=== PATIENT | female | born 1935 | race Caucasian/White ===

== ENCOUNTER 2018-05-29 10:10 | Observation (INO) | payer OTHER ==
--- OUTSIDE RECORDS SUMMARY | 2018-05-29 10:12 | XMS REPORT | Clinical Summary ---
:1935 Author Organization Formerly [facility] Address [address] [place] [address] Phone Care Team Providers Name Role Phone Unavailable Primary Care Provider Unavailable Allergies Active Allergy Reactions Severity Noted Date Comments Cephalexin Rash Low 06/11/2017 Levofloxacin Rash Low 06/11/2017 Penicillins Rash Low 06/11/2017 Current Medications Prescription Sig. Disp. Refills Start End Status Date Date celecoxib (CELEBREX) Take 200 mg by Active 200 MG capsule mouth 2 (two) times daily with breakfast and dinner. ALPRAZolam (XANAX) 0.25 Take 0.25 mg by Active MG tablet mouth every 6 (six) hours as needed for Anxiety. isosorbide dinitrate Take 30 mg by Active (ISORDIL) 20 MG tablet mouth 2 (two) times daily. pioglitazone (ACTOS) 15 Take 15 mg by Active MG tablet mouth daily. traMADol-acetaminophen Take 1-2 tablets Active (ULTRACET) 37.5-325 mg by mouth every 6 per tablet (six) hours as needed for Pain. pantoprazole (PROTONIX) Take 40 mg by Active 40 MG tablet mouth daily. simvastatin (ZOCOR) 20 Take 20 mg by Active MG tablet mouth nightly. ezetimibe (ZETIA) 10 mg Take 10 mg by Active tablet mouth daily. metoprolol (LOPRESSOR) Take 50 mg by Active 50 MG tablet mouth 2 (two) times daily. ondansetron (ZOFRAN) 4 Take 4 mg by Active MG tablet mouth every 8 (eight) hours as needed for Nausea. levothyroxine Take 125 mcg by Active (SYNTHROID, LEVOTHROID) mouth Every 125 MCG tablet morning on an empty stomach. fenofibrate Take 160 mg by Active (TRIGLIDE,LOFIBRA) 160 mouth daily. MG tablet clopidogrel (PLAVIX) 75 Take 75 mg by Active mg tablet mouth daily. PARoxetine (PAXIL) 20 Take 20 mg by Active MG tablet mouth every morning. aspirin 325 MG tablet Take 325 mg by Active mouth daily. docusate sodium Take by mouth 2 Active (COLACE) 50 MG capsule (two) times daily as needed for Constipation. niacin 500 MG tablet Take 500 mg by Active mouth daily with breakfast. lactobacillus Take 1 capsule by Active rhamnosus, GG, mouth daily. (CULTURELLE) 10 billion cell capsule insulin glargine Inject 40 Units Active (LANTUS) 100 unit/mL subcutaneously 2 injection (two) times daily Use as directed . furosemide (LASIX) 40 Take 0.5 tablets 0 06/14/20 Active MG tablet (20 mg total) by 17 mouth daily. insulin detemir Inject 40 Units 24 mL 1 06/14/20 Active (LEVEMIR) 100 unit/mL subcutaneously 2 17 018 injection (two) times daily. furosemide (LASIX) 40 Take 20 mg by Discontinued MG tablet mouth 2 (two) 017 times daily. hydroCHLOROthiazide Take 25 mg by Discontinued (HYDRODIURIL) 25 MG mouth daily. 017 tablet sulfamethoxazole-trimet Take 1 tablet by Discontinued hoprim (BACTRIM DS) mouth 2 (two) 017 800-160 mg per tablet times daily. irbesartan (AVAPRO) 300 Take 300 mg by Discontinued MG tablet mouth daily. 017 metroNIDAZOLE (FLAGYL) Take 1 tablet 30 tablet 0 06/14/20 500 MG tablet (500 mg total) by 17 017 mouth 3 (three) times daily for 10 days. sulfamethoxazole-trimet Take 1 tablet (80 20 tablet 0 06/14/20 hoprim (BACTRIM,SEPTRA) mg of 17 017 400-80 mg per tablet trimethoprim total) by mouth 2 (two) times daily for 10 days. Active Problems Problem Noted Date Diverticulitis 06/11/2017 Encounters Date Type Specialty Care Team Description 06/10/2017 - Hospital Encounter General Internal Rodrigo, Diverticulitis of 06/14/2017 Medicine Anatoly Mcfarlane, large intestine MD without perforation or abscess without bleeding after 05/28/2017 Family History Medical History Relation Name Comments No Known Problem Brother No Known Problem Daughter No Known Problem Father No Known Problem Maternal Aunt No Known Problem Maternal Grandfather No Known Problem Maternal Grandmother No Known Problem Maternal Uncle No Known Problem Mother No Known Problem Paternal Aunt No Known Problem Paternal Grandfather No Known Problem Paternal Grandmother No Known Problem Paternal Uncle No Known Problem Sister No Known Problem Son Relation Name Status Comments Brother Daughter Father Maternal Aunt Maternal Grandfather Maternal Grandmother Maternal Uncle Mother Paternal Aunt Paternal Grandfather Paternal Grandmother Paternal Uncle Sister Son Social History Tobacco Use Types Packs/Day Years Used Date Never Smoker Smokeless Tobacco: Never Used Tobacco Cessation: Counseling Given: Yes Alcohol Use Drinks/Week oz/Week Comments No Sex Assigned at Date Recorded Not on file Last Filed Vital Signs Vital Sign Reading Time Taken Blood Pressure 143/53 06/14/2017 1:23 PM CDT Pulse 68 06/14/2017 1:23 PM CDT Temperature 36.6 C (97.9 F) 06/14/2017 7:09 AM CDT Respiratory Rate 18 06/14/2017 1:23 PM CDT Oxygen Saturation 98% 06/14/2017 1:23 PM CDT Inhaled Oxygen Concentration - - Weight 83.5 kg (183 lb 15.9 oz) 06/11/2017 1:00 AM CDT Height 157.5 cm (5' 2") 06/11/2017 12:22 AM CDT Body Mass Index 33.65 06/11/2017 1:00 AM CDT Plan of Treatment Not on file Results RHYTHM STRIP - SCAN (06/15/2017 6:01 PM)POC-Glucose meter (06/14/2017 4:17 PM) Only the most recent of14 resultswithin the time period is included. Component Value Ref Range POC-Glucose Meter 315 (H)Comment: TESTED AT [facility] [address] [facility] 70 - 110 mg/dL [facility] [address] Specimen Performing Laboratory Blood [facility] [address] [address] CBC with platelet count + automated diff (06/14/2017 3:39 AM)Only the most recent of5 resultswithin the time period is included. Component Value Ref Range WBC 9.4 4.0 - 10.0 K/L RBC 3.84 (L) 4.00 - 5.00 M/L Hemoglobin 11.3 (L) 12.0 - 15.0 GM/DL Hematocrit 34.4 (L) 36.0 - 45.0 % MCV 89.6 82.0 - 99.0 fL MCH 29.3 27.0 - 33.0 pg MCHC 32.7 32.0 - 36.0 GM/DL RDW 14.4 12.0 - 15.0 % Platelets 279 150 - 430 K/CU MM MPV 8.1 6.5 - 10.5 fL nRBC 0 0 - 0 /100 WBC % Neutros 57 % % Lymphs 30 % % Monos 6 % % Eos 7 % % Baso 1 % # Neutros 5.40 1.80 - 8.00 K/L # Lymphs 2.80 1.48 - 4.50 K/L # Monos 0.50 0.00 - 1.30 K/L # Eos 0.60 (H) 0.00 - 0.50 K/L # Baso 0.10 0.00 - 0.20 K/L Specimen Performing Laboratory Blood - [facility] [address] [place] [address] CBC with platelet count + automated diff (06/14/2017 3:39 AM)Only the most recent of5 resultswithin the time period is included. Specimen Performing Laboratory Blood Narrative The following orders were created for panel order CBC with platelet count + automated diff. Procedure Abnormality Status --------- ------ CBC with platelet count ...[[id number]]AbnormalFinal result Please view results for these tests on the individual orders. Comprehensive metabolic panel (06/14/2017 3:39 AM)Only the most recent of4 resultswithin the time period is included. Component Value Ref Range Protein, Total 6.1 6.0 - 8.5 gm/dL Albumin 3.4 (L) 3.5 - 5.0 g/dL Alkaline Phosphatase 55 30 - 115 U/L Total Bilirubin 0.3 0.1 - 1.3 mg/dL Sodium 140 135 - 148 meq/L Potassium 4.4 3.5 - 5.5 meq/L Chloride 107 (H) 98 - 106 meq/L CO2 23 20 - 31 meq/L BUN 30 (H) 10 - 26 mg/dL Creatinine 2.27 (H) 0.50 - 1.20 mg/dL Glucose 122 (H) 70 - 110 mg/dL Calcium 9.3 8.5 - 10.5 mg/dL AST 19 5 - 40 U/L ALT 12 6 - 50 U/L EGFR Comment: INSUFFICIENT CLINICAL DATA TO mL/min/1.73 sq m CALCULATE ESTIMATED GFR. Specimen Performing Laboratory Blood - [place], [facility] [address] [place] [address] Basic Metabolic Panel (06/12/2017 11:21 AM)Only the most recent of2 resultswithin the time period is included. Component Value Ref Range Sodium 134 (L) 135 - 148 meq/L Potassium 4.7 3.5 - 5.5 meq/L Chloride 98 98 - 106 meq/L CO2 23 20 - 31 meq/L BUN 35 (H) 10 - 26 mg/dL Creatinine 2.34 (H) 0.50 - 1.20 mg/dL Glucose 295 (H) 70 - 110 mg/dL Calcium 10.0 8.5 - 10.5 mg/dL EGFR Comment: INSUFFICIENT CLINICAL DATA TO CALCULATE mL/min/1.73 sq m ESTIMATED GFR. Specimen Performing Laboratory Blood - [place], [facility] [address] [place] [address] Sedimentation rate (06/11/2017 8:03 AM) Component Value Ref Range Sed Rate 55 (H) 0 - 40 mm/HR Specimen Performing Laboratory Blood - [place], [facility] [address] [place] [address] after 05/28/2017
--- OUTSIDE RECORDS SUMMARY | 2018-05-29 10:13 | XMS REPORT ---
:1935 [facility] Address [address] [place], [place] [address]linda Johnston [address] [place] [id number] Care Team Providers Name Role Phone MINA ALBERTS Unavailable Unavailable Problems This patient has no known problems. Allergies, Adverse Reactions, Alerts This patient has no known allergies or adverse reactions. Medications This patient has no known medications. Results Test Description Test Time Test Comments Text Results Atomic Results Result Comments POCT-GLUCOSE METER 2017-06-14 16:21:00 Test Item Value Reference Range Comments POC-GLUCOSE METER (BEAKER) (test 315 mg/dL 70-110 TESTED AT [facility] [id number] [place] [address] WAY wbns=[id number]) [facility] [address] POCT-GLUCOSE [id number] 11:57:00 Test Item Value Reference Range Comments POC-GLUCOSE METER (BEAKER) 224 mg/dL 70-110 TESTED AT [facility] [address] [facility] (test jbop=5411) [facility] [address] POCT-GLUCOSE [id number] 06:03:00 Test Item Value Reference Range Comments POC-GLUCOSE METER (BEAKER) 118 mg/dL 70-110 TESTED AT [facility] [address] [facility] (test jeyi=7361) [facility] [address] COMPREHENSIVE METABOLIC [id number] 04:28:00 Test Item Value Reference Range Comments TOTAL PROTEIN (BEAKER) 6.1 gm/dL 6.0-8.5 (test uuru=142) ALBUMIN (BEAKER) (test 3.4 g/dL 3.5-5.0 hbaz=9723) ALKALINE PHOSPHATASE 55 U/L 30-115 (BEAKER) (test xtof=953) BILIRUBIN TOTAL (BEAKER) 0.3 mg/dL 0.1-1.3 (test thxb=448) SODIUM (BEAKER) (test 140 meq/L 135-148 zdow=555) POTASSIUM (BEAKER) (test 4.4 meq/L 3.5-5.5 gewo=129) CHLORIDE (BEAKER) (test 107 meq/L 98-106 ksce=645) CO2 (BEAKER) (test 23 meq/L 20-31 oary=704) BLOOD UREA NITROGEN 30 mg/dL 10-26 (BEAKER) (test olgu=240) CREATININE (BEAKER) (test 2.27 mg/dL 0.50-1.20 fzug=085) GLUCOSE RANDOM (BEAKER) 122 mg/dL 70-110 (test vjqz=382) CALCIUM (BEAKER) (test 9.3 mg/dL 8.5-10.5 oaxh=018) AST (SGOT) (BEAKER) (test 19 U/L 5-40 bwvw=429) ALT (SGPT) (BEAKER) (test 12 U/L 6-50 xeun=665) EGFR (BEAKER) (test mL/min/1.73 sq m INSUFFICIENT CLINICAL DATA hwka=1257) TO CALCULATE ESTIMATED GFR. CBC W/PLT COUNT & AUTO [id number] 03:44:00 Test Item Value Reference Range Comments WHITE BLOOD CELL COUNT (BEAKER) (test kzxc=354) 9.4 K/ L 4.0-10.0 RED BLOOD CELL COUNT (BEAKER) (test olid=732) 3.84 M/ L 4.00-5.00 HEMOGLOBIN (BEAKER) (test tekc=269) 11.3 GM/DL 12.0-15.0 HEMATOCRIT (BEAKER) (test ujtv=425) 34.4 % 36.0-45.0 MEAN CORPUSCULAR VOLUME (BEAKER) (test fojg=016) 89.6 fL 82.0-99.0 MEAN CORPUSCULAR HEMOGLOBIN (BEAKER) (test 29.3 pg 27.0-33.0 egqu=065) MEAN CORPUSCULAR HEMOGLOBIN CONC (BEAKER) (test 32.7 GM/DL 32.0-36.0 hdsv=653) RED CELL DISTRIBUTION WIDTH (BEAKER) (test 14.4 % 12.0-15.0 zqrb=218) PLATELET COUNT (BEAKER) (test kphh=531) 279 K/CU MM 150-430 MEAN PLATELET VOLUME (BEAKER) (test bwbd=210) 8.1 fL 6.5-10.5 NUCLEATED RED BLOOD CELLS (BEAKER) (test 0 /100 WBC 0-0 xllu=860) NEUTROPHILS RELATIVE PERCENT (BEAKER) (test 57 % zwix=125) LYMPHOCYTES RELATIVE PERCENT (BEAKER) (test 30 % ohyr=445) MONOCYTES RELATIVE PERCENT (BEAKER) (test 6 % flrs=363) EOSINOPHILS RELATIVE PERCENT (BEAKER) (test 7 % kzdd=536) BASOPHILS RELATIVE PERCENT (BEAKER) (test 1 % hqql=505) NEUTROPHILS ABSOLUTE COUNT (BEAKER) (test 5.40 K/ L 1.80-8.00 omjb=239) LYMPHOCYTES ABSOLUTE COUNT (BEAKER) (test 2.80 K/ L 1.48-4.50 venx=803) MONOCYTES ABSOLUTE COUNT (BEAKER) (test 0.50 K/ L 0.00-1.30 crie=707) EOSINOPHILS ABSOLUTE COUNT (BEAKER) (test 0.60 K/ L 0.00-0.50 mmxn=688) BASOPHILS ABSOLUTE COUNT (BEAKER) (test 0.10 K/ L 0.00-0.20 vfjf=322) POCT-GLUCOSE [id number] 20:46:00 Test Item Value Reference Range Comments POC-GLUCOSE METER (BEAKER) 262 mg/dL 70-110 TESTED AT [facility] [address] [facility] (test tfai=4816) [facility] [address] POCT-GLUCOSE [id number] 18:01:00 Test Item Value Reference Range Comments POC-GLUCOSE METER (BEAKER) 305 mg/dL 70-110 Notified NICOLASA RAYGOZA/TESTED AT [facility] (test qvjm=9237) [address] [facility] [address] [facility] [address] POCT-GLUCOSE [id number] 11:41:00 Test Item Value Reference Range Comments POC-GLUCOSE METER (BEAKER) 331 mg/dL 70-110 TESTED AT [facility] [address] [facility] (test ubgp=8219) [facility] [address] COMPREHENSIVE METABOLIC [id number] 05:16:00 Test Item Value Reference Range Comments TOTAL PROTEIN (BEAKER) 6.3 gm/dL 6.0-8.5 (test syeb=280) ALBUMIN (BEAKER) (test 3.3 g/dL 3.5-5.0 cjrd=6010) ALKALINE PHOSPHATASE 67 U/L 30-115 (BEAKER) (test emui=467) BILIRUBIN TOTAL (BEAKER) 0.3 mg/dL 0.1-1.3 (test dggl=246) SODIUM (BEAKER) (test 137 meq/L 135-148 iqlm=357) POTASSIUM (BEAKER) (test 4.2 meq/L 3.5-5.5 vycr=369) CHLORIDE (BEAKER) (test 105 meq/L 98-106 naad=166) CO2 (BEAKER) (test 22 meq/L 20-31 edvn=898) BLOOD UREA NITROGEN 36 mg/dL 10-26 (BEAKER) (test xotl=441) CREATININE (BEAKER) (test 2.26 mg/dL 0.50-1.20 wenh=517) GLUCOSE RANDOM (BEAKER) 241 mg/dL 70-110 (test xlhq=375) CALCIUM (BEAKER) (test 9.5 mg/dL 8.5-10.5 jepo=839) AST (SGOT) (BEAKER) (test 18 U/L 5-40 zsln=244) ALT (SGPT) (BEAKER) (test 11 U/L 6-50 ukwq=367) EGFR (BEAKER) (test mL/min/1.73 sq m INSUFFICIENT CLINICAL DATA wgga=6796) TO CALCULATE ESTIMATED GFR. CBC W/PLT COUNT & AUTO [id number] 04:49:00 Test Item Value Reference Range Comments WHITE BLOOD CELL COUNT (BEAKER) (test fhqo=794) 9.3 K/ L 4.0-10.0 RED BLOOD CELL COUNT (BEAKER) (test kcoq=129) 3.89 M/ L 4.00-5.00 HEMOGLOBIN (BEAKER) (test kkrx=603) 11.5 GM/DL 12.0-15.0 HEMATOCRIT (BEAKER) (test anvg=065) 34.9 % 36.0-45.0 MEAN CORPUSCULAR VOLUME (BEAKER) (test vltc=746) 89.7 fL 82.0-99.0 MEAN CORPUSCULAR HEMOGLOBIN (BEAKER) (test 29.4 pg 27.0-33.0 xvcj=936) MEAN CORPUSCULAR HEMOGLOBIN CONC (BEAKER) (test 32.8 GM/DL 32.0-36.0 mjor=049) RED CELL DISTRIBUTION WIDTH (BEAKER) (test 14.2 % 12.0-15.0 wodq=041) PLATELET COUNT (BEAKER) (test puzs=983) 268 K/CU MM 150-430 MEAN PLATELET VOLUME (BEAKER) (test bpzy=011) 8.7 fL 6.5-10.5 NUCLEATED RED BLOOD CELLS (BEAKER) (test 0 /100 WBC 0-0 jwgm=251) NEUTROPHILS RELATIVE PERCENT (BEAKER) (test 59 % knrl=052) LYMPHOCYTES RELATIVE PERCENT (BEAKER) (test 30 % ebpa=215) MONOCYTES RELATIVE PERCENT (BEAKER) (test 5 % jnvk=084) EOSINOPHILS RELATIVE PERCENT (BEAKER) (test 7 % ljmc=069) BASOPHILS RELATIVE PERCENT (BEAKER) (test 0 % zufj=102) NEUTROPHILS ABSOLUTE COUNT (BEAKER) (test 5.50 K/ L 1.80-8.00 qfqf=738) LYMPHOCYTES ABSOLUTE COUNT (BEAKER) (test 2.70 K/ L 1.48-4.50 rdel=021) MONOCYTES ABSOLUTE COUNT (BEAKER) (test 0.50 K/ L 0.00-1.30 bjsk=194) EOSINOPHILS ABSOLUTE COUNT (BEAKER) (test 0.60 K/ L 0.00-0.50 vupg=752) BASOPHILS ABSOLUTE COUNT (BEAKER) (test 0.00 K/ L 0.00-0.20 jvye=697) POCT-GLUCOSE [id number] 20:59:00 Test Item Value Reference Range Comments POC-GLUCOSE METER (BEAKER) 363 mg/dL 70-110 Notified NICOLASA RAYGOZA/TESTED AT [facility] (test lhab=2942) [address] [facility] [address] POCT-GLUCOSE [id number] 17:17:00 Test Item Value Reference Range Comments POC-GLUCOSE METER (BEAKER) 314 mg/dL 70-110 TESTED AT [facility] [address] [facility] (test yhqt=7515) [facility] [address] BASIC METABOLIC [id number] 12:14:00 Test Item Value Reference Range Comments SODIUM (BEAKER) (test 134 meq/L 135-148 vvpn=871) POTASSIUM (BEAKER) (test 4.7 meq/L 3.5-5.5 ctuv=924) CHLORIDE (BEAKER) (test 98 meq/L 98-106 hzwq=768) CO2 (BEAKER) (test 23 meq/L 20-31 iivf=786) BLOOD UREA NITROGEN 35 mg/dL 10-26 (BEAKER) (test bjbi=888) CREATININE (BEAKER) (test 2.34 mg/dL 0.50-1.20 stfr=447) GLUCOSE RANDOM (BEAKER) 295 mg/dL 70-110 (test msuw=556) CALCIUM (BEAKER) (test 10.0 mg/dL 8.5-10.5 bzgk=087) EGFR (BEAKER) (test mL/min/1.73 sq m INSUFFICIENT CLINICAL DATA irkr=9076) TO CALCULATE ESTIMATED GFR. CBC W/PLT COUNT & AUTO [id number] 11:37:00 Test Item Value Reference Range Comments WHITE BLOOD CELL COUNT (BEAKER) (test fdjj=655) 10.1 K/ L 4.0-10.0 RED BLOOD CELL COUNT (BEAKER) (test mouy=533) 4.42 M/ L 4.00-5.00 HEMOGLOBIN (BEAKER) (test jitx=809) 13.0 GM/DL 12.0-15.0 HEMATOCRIT (BEAKER) (test aovf=327) 39.6 % 36.0-45.0 MEAN CORPUSCULAR VOLUME (BEAKER) (test egqu=029) 89.5 fL 82.0-99.0 MEAN CORPUSCULAR HEMOGLOBIN (BEAKER) (test 29.4 pg 27.0-33.0 cbtn=763) MEAN CORPUSCULAR HEMOGLOBIN CONC (BEAKER) (test 32.8 GM/DL 32.0-36.0 xnbc=255) RED CELL DISTRIBUTION WIDTH (BEAKER) (test 14.3 % 12.0-15.0 wjks=791) PLATELET COUNT (BEAKER) (test nzla=845) 326 K/CU MM 150-430 MEAN PLATELET VOLUME (BEAKER) (test agij=369) 8.7 fL 6.5-10.5 NUCLEATED RED BLOOD CELLS (BEAKER) (test 0 /100 WBC 0-0 nwdt=832) NEUTROPHILS RELATIVE PERCENT (BEAKER) (test 60 % pjge=197) LYMPHOCYTES RELATIVE PERCENT (BEAKER) (test 27 % wffx=143) MONOCYTES RELATIVE PERCENT (BEAKER) (test 7 % onfo=920) EOSINOPHILS RELATIVE PERCENT (BEAKER) (test 6 % nfri=908) BASOPHILS RELATIVE PERCENT (BEAKER) (test 0 % xmcq=907) NEUTROPHILS ABSOLUTE COUNT (BEAKER) (test 6.10 K/ L 1.80-8.00 okmu=860) LYMPHOCYTES ABSOLUTE COUNT (BEAKER) (test 2.70 K/ L 1.48-4.50 hcez=862) MONOCYTES ABSOLUTE COUNT (BEAKER) (test 0.70 K/ L 0.00-1.30 cjli=881) EOSINOPHILS ABSOLUTE COUNT (BEAKER) (test 0.60 K/ L 0.00-0.50 tayc=324) BASOPHILS ABSOLUTE COUNT (BEAKER) (test 0.00 K/ L 0.00-0.20 kwwt=688) POCT-GLUCOSE [id number] 11:32:00 Test Item Value Reference Range Comments POC-GLUCOSE METER (BEAKER) 293 mg/dL 70-110 TESTED AT [facility] [id number] [place] [address] (test wccq=8551) [facility] [address] POCT-GLUCOSE [id number] 06:01:00 Test Item Value Reference Range Comments POC-GLUCOSE METER (BEAKER) 294 mg/dL 70-110 TESTED AT [facility] [id number] [place] [address] (test aqmg=2491) [facility] [address] BASIC METABOLIC [id number] 05:34:00 Test Item Value Reference Range Comments SODIUM (BEAKER) (test 136 meq/L 135-148 lugz=564) POTASSIUM (BEAKER) (test 4.1 meq/L 3.5-5.5 inmd=774) CHLORIDE (BEAKER) (test 101 meq/L 98-106 jqpk=857) CO2 (BEAKER) (test 22 meq/L 20-31 pfgl=700) BLOOD UREA NITROGEN 34 mg/dL 10-26 (BEAKER) (test uqzj=796) CREATININE (BEAKER) (test 2.42 mg/dL 0.50-1.20 zpcc=427) GLUCOSE RANDOM (BEAKER) 273 mg/dL 70-110 (test arng=987) CALCIUM (BEAKER) (test 9.7 mg/dL 8.5-10.5 mdvq=576) EGFR (BEAKER) (test mL/min/1.73 sq m INSUFFICIENT CLINICAL DATA hukr=9870) TO CALCULATE ESTIMATED GFR. COMPREHENSIVE METABOLIC [id number] 05:34:00 Test Item Value Reference Range Comments TOTAL PROTEIN (BEAKER) 6.5 gm/dL 6.0-8.5 (test iqds=174) ALBUMIN (BEAKER) (test 3.6 g/dL 3.5-5.0 oudf=9079) ALKALINE PHOSPHATASE 59 U/L 30-115 (BEAKER) (test cxin=498) BILIRUBIN TOTAL (BEAKER) 0.3 mg/dL 0.1-1.3 (test mvpd=785) SODIUM (BEAKER) (test 136 meq/L 135-148 xedo=889) POTASSIUM (BEAKER) (test 4.1 meq/L 3.5-5.5 xtlj=037) CHLORIDE (BEAKER) (test 101 meq/L 98-106 kvzl=020) CO2 (BEAKER) (test 22 meq/L 20-31 eihf=912) BLOOD UREA NITROGEN 34 mg/dL 10-26 (BEAKER) (test aqid=552) CREATININE (BEAKER) (test 2.42 mg/dL 0.50-1.20 pqix=977) GLUCOSE RANDOM (BEAKER) 273 mg/dL 70-110 (test fhrl=808) CALCIUM (BEAKER) (test 9.7 mg/dL 8.5-10.5 udlw=171) AST (SGOT) (BEAKER) (test 13 U/L 5-40 ihos=239) ALT (SGPT) (BEAKER) (test 10 U/L 6-50 zsgj=353) EGFR (BEAKER) (test mL/min/1.73 sq m INSUFFICIENT CLINICAL DATA nnqy=8898) TO CALCULATE ESTIMATED GFR. CBC W/PLT COUNT & AUTO [id number] 05:06:00 Test Item Value Reference Range Comments WHITE BLOOD CELL COUNT (BEAKER) (test shsi=136) 9.2 K/ L 4.0-10.0 RED BLOOD CELL COUNT (BEAKER) (test yccs=651) 4.08 M/ L 4.00-5.00 HEMOGLOBIN (BEAKER) (test sped=516) 12.1 GM/DL 12.0-15.0 HEMATOCRIT (BEAKER) (test sflj=561) 36.4 % 36.0-45.0 MEAN CORPUSCULAR VOLUME (BEAKER) (test leey=721) 89.1 fL 82.0-99.0 MEAN CORPUSCULAR HEMOGLOBIN (BEAKER) (test 29.6 pg 27.0-33.0 rubt=595) MEAN CORPUSCULAR HEMOGLOBIN CONC (BEAKER) (test 33.2 GM/DL 32.0-36.0 gfov=941) RED CELL DISTRIBUTION WIDTH (BEAKER) (test 14.2 % 12.0-15.0 rgpv=052) PLATELET COUNT (BEAKER) (test bpsx=624) 278 K/CU MM 150-430 MEAN PLATELET VOLUME (BEAKER) (test qrvd=341) 8.5 fL 6.5-10.5 NUCLEATED RED BLOOD CELLS (BEAKER) (test 0 /100 WBC 0-0 wuab=149) NEUTROPHILS RELATIVE PERCENT (BEAKER) (test 57 % aiga=606) LYMPHOCYTES RELATIVE PERCENT (BEAKER) (test 30 % zaql=981) MONOCYTES RELATIVE PERCENT (BEAKER) (test 6 % lgnp=220) EOSINOPHILS RELATIVE PERCENT (BEAKER) (test 6 % wqbl=738) BASOPHILS RELATIVE PERCENT (BEAKER) (test 1 % nmhf=006) NEUTROPHILS ABSOLUTE COUNT (BEAKER) (test 5.20 K/ L 1.80-8.00 kdcr=893) LYMPHOCYTES ABSOLUTE COUNT (BEAKER) (test 2.80 K/ L 1.48-4.50 yprv=558) MONOCYTES ABSOLUTE COUNT (BEAKER) (test 0.60 K/ L 0.00-1.30 ymnj=612) EOSINOPHILS ABSOLUTE COUNT (BEAKER) (test 0.60 K/ L 0.00-0.50 bhey=874) BASOPHILS ABSOLUTE COUNT (BEAKER) (test 0.10 K/ L 0.00-0.20 zcfc=299) POCT-GLUCOSE [id number] 21:27:00 Test Item Value Reference Range Comments POC-GLUCOSE METER (BEAKER) 366 mg/dL 70-110 TESTED AT [facility] [id number] [place] [address] (test odbb=0146) WAY [facility] [address] POCT-GLUCOSE [id number] 20:16:00 Test Item Value Reference Range Comments POC-GLUCOSE METER (BEAKER) 329 mg/dL 70-110 TESTED AT [facility] [id number] [place] [address] (test zkkl=6538) WAY [facility] [address] POCT-GLUCOSE [id number] 11:50:00 Test Item Value Reference Range Comments POC-GLUCOSE METER (BEAKER) 360 mg/dL 70-110 Notified NICOLASA RAYGOZA/TESTED AT [facility] (test xugz=3776) [address] [facility] [address] [facility] [address] SEDIMENTATION [id number] 09:08:00 Test Item Value Reference Range Comments SEDIMENTATION RATE, ERYTHROCYTE (BEAKER) (test 55 mm/HR 0-40 jquk=887) COMPREHENSIVE METABOLIC [id number] 06:16:00 Test Item Value Reference Range Comments TOTAL PROTEIN (BEAKER) 7.6 gm/dL 6.0-8.5 (test mlsr=128) ALBUMIN (BEAKER) (test 4.0 g/dL 3.5-5.0 yjju=0484) ALKALINE PHOSPHATASE 70 U/L 30-115 (BEAKER) (test ywbz=625) BILIRUBIN TOTAL (BEAKER) 0.4 mg/dL 0.1-1.3 (test wlnh=855) SODIUM (BEAKER) (test 132 meq/L 135-148 ugqg=390) POTASSIUM (BEAKER) (test 4.1 meq/L 3.5-5.5 wxux=458) CHLORIDE (BEAKER) (test 99 meq/L 98-106 spbz=652) CO2 (BEAKER) (test 21 meq/L 20-31 cdlp=888) BLOOD UREA NITROGEN 28 mg/dL 10-26 (BEAKER) (test tapw=973) CREATININE (BEAKER) (test 1.92 mg/dL 0.50-1.20 ivtm=261) GLUCOSE RANDOM (BEAKER) 380 mg/dL 70-110 (test acbp=577) CALCIUM (BEAKER) (test 10.4 mg/dL 8.5-10.5 cbhu=115) AST (SGOT) (BEAKER) (test 15 U/L 5-40 vufx=641) ALT (SGPT) (BEAKER) (test 10 U/L 6-50 sxoq=694) EGFR (BEAKER) (test mL/min/1.73 sq m INSUFFICIENT CLINICAL DATA ltam=9868) TO CALCULATE ESTIMATED GFR. POCT-GLUCOSE [id number] 06:15:00 Test Item Value Reference Range Comments POC-GLUCOSE METER (BEAKER) 357 mg/dL 70-110 TESTED AT [facility] [address] [facility] (test vhsv=9995) WAY [facility] [address] CBC W/PLT COUNT & AUTO [id number] 05:42:00 Test Item Value Reference Range Comments WHITE BLOOD CELL COUNT (BEAKER) (test uuwu=513) 10.7 K/ L 4.0-10.0 RED BLOOD CELL COUNT (BEAKER) (test tust=107) 4.57 M/ L 4.00-5.00 HEMOGLOBIN (BEAKER) (test xjvn=915) 13.5 GM/DL 12.0-15.0 HEMATOCRIT (BEAKER) (test nzfo=171) 41.0 % 36.0-45.0 MEAN CORPUSCULAR VOLUME (BEAKER) (test uiop=574) 89.8 fL 82.0-99.0 MEAN CORPUSCULAR HEMOGLOBIN (BEAKER) (test 29.6 pg 27.0-33.0 udwy=003) MEAN CORPUSCULAR HEMOGLOBIN CONC (BEAKER) (test 32.9 GM/DL 32.0-36.0 gzkm=869) RED CELL DISTRIBUTION WIDTH (BEAKER) (test 14.7 % 12.0-15.0 pwea=879) PLATELET COUNT (BEAKER) (test ycgh=012) 270 K/CU MM 150-430 MEAN PLATELET VOLUME (BEAKER) (test tcou=033) 8.4 fL 6.5-10.5 NUCLEATED RED BLOOD CELLS (BEAKER) (test 0 /100 WBC 0-0 bupl=246) NEUTROPHILS RELATIVE PERCENT (BEAKER) (test 69 % tkac=636) LYMPHOCYTES RELATIVE PERCENT (BEAKER) (test 22 % mvbi=058) MONOCYTES RELATIVE PERCENT (BEAKER) (test 5 % cwhr=012) EOSINOPHILS RELATIVE PERCENT (BEAKER) (test 3 % vjsg=483) BASOPHILS RELATIVE PERCENT (BEAKER) (test 1 % biwe=123) NEUTROPHILS ABSOLUTE COUNT (BEAKER) (test 7.40 K/ L 1.80-8.00 jufq=834) LYMPHOCYTES ABSOLUTE COUNT (BEAKER) (test 2.40 K/ L 1.48-4.50 eghi=468) MONOCYTES ABSOLUTE COUNT (BEAKER) (test 0.60 K/ L 0.00-1.30 dpvi=188) EOSINOPHILS ABSOLUTE COUNT (BEAKER) (test 0.30 K/ L 0.00-0.50 shcb=099) BASOPHILS ABSOLUTE COUNT (BEAKER) (test 0.00 K/ L 0.00-0.20 keft=692)
[2018-05-29 10:33] LABS: Absolute Lymphocytes (CBC) 2.8 K/uL (0.7-4.9); Absolute Monocytes 0.6 K/uL (0.1-1.3); Absolute Neutrophil 9.5 K/uL (1.8-8.0); Basophils % 1.1 % (0-1.3); Eosinophils % 3.3 % (0-4.4); Hematocrit 41.6 % (36.0-45.0); Lymphocytes % 20.6 % (15.3-44.8); MCV 87.2 fL (80-100); MPV 9.1 fL (7.6-11.3); Monocytes % 4.6 % (3.3-12.3); RBC Red Blood Cell Count 4.76 M/uL (3.86-4.86)
[2018-05-29] MEDS ORDERED: NA CHLORIDE 0.9% 1,000 ML ONE (10:34)
[2018-05-29 10:39] LABS: Protime INR 0.99
--- NOTE | 2018-05-29 10:57 | RAD REPORT ---
EXAM DESCRIPTION: CT - [id number] - 05/29/2018 10:37 am CLINICAL HISTORY: Fall, syncope, head and neck injury COMPARISON: CT head and cervical July 2017 TECHNIQUE: Axial 5 mm thick images of the head were obtained. Axial 2 mm thick images of the cervic al spine were obtained with sagittal and coronal reconstruction images generated and reviewed. All CT scans are performed using dose optimization technique as appropriate and may include automated exposure control or mA/KV adjustment according to patient size. FINDINGS: No intracranial hemorrhage, mass, edema or acute intracranial finding. No suspicion for ac lainey infarction. Patient does have prominent atrophy and chronic ischemic change that matches comparis on. Ventricular size is in proportion to the volume loss. Physiologic and arterial calcifications are present. Mastoid air cells and paranasal sinuses are clear. No globe or orbit abnormality seen. Cervical body height and alignment are normal. Mild disc space narrowing is present from C3 to C7. Th is is most pronounced at C6-7. Endplate spurring and uncovertebral joint changes are present. There i s mild left foraminal encroachment at C5-6. Central spinal stenosis is not suspected. No fracture or acute bony abnormality. Central canal detail is inherently limited. Cervical spine is not clearly dif ferent from the comparison. No paraspinal mass or hematoma. IMPRESSION: Prominent atrophy and chronic ischemic change matching the comparison. No acute intracra nial finding. Cervical spine degenerative change matching the comparison. No acute finding. Negative CT cervical spine examination for acute or significant finding.
[2018-05-29 11:02] LABS: Urine Blood 1+ (NEG); Urine Glucose NEGATIVE (NEG); Urine Protein NEGATIVE (NEG); Urine Specific Gravity 1.015 (1.005-1.030); Urine pH 7.5 (5.0-7.0)
[2018-05-29 11:06] LABS: ALT/SGPT 19 U/L (12-78); AST/SGOT 19 U/L (15-37); Albumin 3.8 g/dL (3.4-5.0); Alkaline Phosphatase 67 U/L (45-117); BUN Blood Urea Nitrogen 52 mg/dL (7-18); Bicarbonate 26 mmol/L (21-32); Bilirubin Direct 0.2 mg/dL (0-0.2); Bilirubin Total 0.4 mg/dL (0.2-1.0); CKMB Creatine Kinase MB < 1.0 ng/mL (0.3-3.6); Creatine Phosphokinase 57 U/L (26-192); Glucose Level 374 mg/dL (74-106); Lipase 236 U/L (73-393); Magnesium 2.1 mg/dL (1.8-2.4); NT PRO-BNP 1321 pg/mL (<450); Potassium 4.7 mmol/L (3.5-5.1); Protein, Total 7.7 g/dL (6.4-8.2); Sodium Level 134 mmol/L (136-145)
[2018-05-29 11:19] LABS: Thyroid Stimulating Hormone 5.93 uIU/mL (0.36-3.74)
--- NOTE | 2018-05-29 11:20 | RAD REPORT ---
EXAM DESCRIPTION: RAD - Chest Single View - 05/29/2018 10:47 am CLINICAL HISTORY: Fall, chest pain COMPARISON: March 2016 TECHNIQUE: AP portable chest image was obtained 1031 hours . FINDINGS: No acute failure, infiltrate or suspicious mass. A few small granulomas are present. Trach ea is midline. Heart and vasculature are normal. No measurable pleural effusion and no pneumothorax. No acute bone finding. Degenerative changes are present. There is a right shoulder prosthesis in plac e. No acute aortic findings suspected. IMPRESSION: No acute cardiopulmonary process. Above detailed findings are stable from 2016.
--- NOTE | 2018-05-29 12:57 | EDPHYS ---
Physician Documentation [facility] Name: Leslie Cedeño Age: 82 yrs Sex: Female : 1935 Arrival Date: 05/29/2018 Time: 10:01 Bed 2 Private MD: ED Physician Davidson Cisneros HPI: 05/29 10:26 This 82 yrs old Female presents to ER via EMS with complaints of Near rj Syncope, Fall Injury. 10:26 The patient has experienced near-syncope. Onset: The symptoms/episode began/occurred rj just prior to arrival, this morning. Duration: This was a single episode, that lasted 30 second(s). Context: occurred at home. Associated injury: Head/face:. Associated signs and symptoms: Pertinent positives: dizziness, weakness. Current symptoms: Currently, the patient is not experiencing any symptoms. The patient has not experienced similar symptoms in the past. Historical: - Allergies: 10: Keflex; aa5 10: Levaquin; aa5 10:01 PENICILLINS; aa5 10:01 Trulicity; aa5 - Home Meds: 10:01 clopidogrel Oral [Active]; fenofibrate Oral [Active]; hydrochlorothiazide 12.5 mg Oral aa5 cap 1 cap once daily [Active]; Lasix Oral [Active]; levimir [Active]; levothyroxine 125 mcg tab 1 tab once daily [Active]; Metoprolol Tartrate Oral once daily [Active]; Niacin Oral [Active]; Novolin 70/30 [place] Sub-Q [Active]; pantoprazole 20 mg Oral TbEC 1 tab once daily [Active]; Simvastatin Oral [Active]; symbicort [Active]; Zetia 10 mg Oral tab [Active]; - PMHx: 10:01 Diabetes - IDDM; heart problems; Hypertension; aa5 - PSHx: 10:01 Cholecystectomy; Hernia repair; Thyroidectomy; hemorrhoidectomy; Hysterectomy; Hammer aa5 toe repair; Angioplasty; Heart stents; Right shoulder joint replacement; Melanoma removed from L ankle; Basal Cell carcinoma removed from nose; Colon polyps removed; Cataracts surgery; - Immunization history:: Adult Immunizations up to date. - Ebola Screening: : No symptoms or risks identified at this time. - Family history:: not pertinent. - Social history:: Smoking status: Patient/guardian denies using tobacco. ROS: 10:26 Constitutional: Negative for fever, chills, and weight loss, Eyes: Negative for injury, rj pain, redness, and discharge, ENT: Negative for injury, pain, and discharge, Neck: Negative for injury, pain, and swelling, Cardiovascular: Negative for chest pain, palpitations, and edema, Respiratory: Negative for shortness of breath, cough, wheezing, and pleuritic chest pain, Abdomen/GI: Negative for abdominal pain, nausea, vomiting, diarrhea, and constipation, Back: Negative for injury and pain, : Negative for injury, bleeding, discharge, and swelling, MS/Extremity: Negative for injury and deformity, Skin: Negative for injury, rash, and discoloration, Psych: Negative for depression, anxiety, suicide ideation, homicidal ideation, and hallucinations, Allergy/Immunology: Negative for hives, rash, and allergies, Endocrine: Negative for neck swelling, polydipsia, polyuria, polyphagia, and marked weight changes, Hematologic/Lymphatic: Negative for swollen nodes, abnormal bleeding, and unusual bruising. 10:26 Neuro: Positive for near syncope, weakness. Exam: 10:26 Constitutional: This is a well developed, well nourished patient who is awake, alert, rj and in no acute distress. Head/Face: Normocephalic, atraumatic. Eyes: Pupils equal round and reactive to light, extra-ocular motions intact. Lids and lashes normal. Conjunctiva and sclera are non-icteric and not injected. Cornea within normal limits. Periorbital areas with no swelling, redness, or edema. ENT: Nares patent. No nasal discharge, no septal abnormalities noted. Tympanic membranes are normal and external auditory canals are clear. Oropharynx with no redness, swelling, or masses, exudates, or evidence of obstruction, uvula midline. Mucous membranes moist. Neck: Trachea midline, no thyromegaly or masses palpated, and no cervical lymphadenopathy. Supple, full range of motion without nuchal rigidity, or vertebral point tenderness. No Meningismus. Chest/axilla: Normal chest wall appearance and motion. Nontender with no deformity. No lesions are appreciated. Cardiovascular: Regular rate and rhythm with a normal S1 and S2. No gallops, murmurs, or rubs. Normal PMI, no JVD. No pulse deficits. Respiratory: Lungs have equal breath sounds bilaterally, clear to auscultation and percussion. No rales, rhonchi or wheezes noted. No increased work of breathing, no retractions or nasal flaring. Abdomen/GI: Soft, non-tender, with normal bowel sounds. No distension or tympany. No guarding or rebound. No evidence of tenderness throughout. Back: No spinal tenderness. No costovertebral tenderness. Full range of motion. Female : Normal external genitalia. Skin: Warm, dry with normal turgor. Normal color with no rashes, no lesions, and no evidence of cellulitis. MS/ Extremity: Pulses equal, no cyanosis. Neurovascular intact. Full, normal range of motion. Neuro: Awake and alert, GCS 15, oriented to person, place, time, and situation. Cranial nerves II-XII grossly intact. Motor strength 5/5 in all extremities. Sensory grossly intact. Cerebellar exam normal. Normal gait. Psych: Awake, alert, with orientation to person, place and time. Behavior, mood, and affect are within normal limits. Vital Signs: 10:02 BP 154 / 47; Pulse 49; Resp 14 S; Temp 98.3(O); Pulse Ox 98% on R/A; Pain 0/10; la1 10:30 BP 158 / 66; Pulse 48; Resp 16 S; Pulse Ox 96% on R/A; aa5 11:00 BP 145 / 45; Pulse 46; Resp 16 S; Pulse Ox 96% on R/A; aa5 11:30 BP 129 / 46; Pulse 48; Resp 14 S; Pulse Ox 97% on R/A; aa5 11:35 Pulse 49 MON; Resp 14; Pulse Ox 100% on R/A; jp3 12:30 BP 138 / 47; Pulse 48; Resp 14 S; Pulse Ox 98% on R/A; aa5 13:30 BP 105 / 50; Pulse 50; Resp 16 S; Pulse Ox 98% on R/A; aa5 14:30 BP 120 / 49; Pulse 50; Resp 16 S; Temp 98.0(TE); Pulse Ox 98% on R/A; Pain 0/10; aa5 Taylor Coma Score: 10:02 Eye Response: spontaneous(4). Verbal Response: oriented(5). Motor Response: obeys la1 commands(6). Total: 15. 13:30 Eye Response: spontaneous(4). Verbal Response: oriented(5). Motor Response: obeys aa5 commands(6). Total: 15. 14:30 Eye Response: spontaneous(4). Verbal Response: oriented(5). Motor Response: obeys aa5 commands(6). Total: 15. Trauma Score (Adult): 10:02 Eye Response: spontaneous(1); Verbal Response: oriented(1); Motor Response: obeys la1 commands(2); Systolic BP: > 89 mm Hg(4); Respiratory Rate: 10 to 29 per min(4); [place] Score: 15; Trauma Score: 12 10:30 Eye Response: spontaneous(1); Verbal Response: oriented(1); Motor Response: obeys aa5 commands(2); Systolic BP: > 89 mm Hg(4); Respiratory Rate: 10 to 29 per min(4); [place] Score: 15; Trauma Score: 12 11:00 Eye Response: spontaneous(1); Verbal Response: oriented(1); Motor Response: obeys aa5 commands(2); Systolic BP: > 89 mm Hg(4); Respiratory Rate: 10 to 29 per min(4); [place] Score: 15; Trauma Score: 12 11:30 Eye Response: spontaneous(1); Verbal Response: oriented(1); Motor Response: obeys aa5 commands(2); Systolic BP: > 89 mm Hg(4); Respiratory Rate: 10 to 29 per min(4); [place] Score: 15; Trauma Score: 12 12:30 Eye Response: spontaneous(1); Verbal Response: oriented(1); Motor Response: obeys aa5 commands(2); Systolic BP: > 89 mm Hg(4); Respiratory Rate: 10 to 29 per min(4); [place] Score: 15; Trauma Score: 12 13:30 Eye Response: spontaneous(1); Verbal Response: oriented(1); Motor Response: obeys aa5 commands(2); Systolic BP: > 89 mm Hg(4); Respiratory Rate: 10 to 29 per min(4); [place] Score: 15; Trauma Score: 12 14:30 Eye Response: spontaneous(1); Verbal Response: oriented(1); Motor Response: obeys aa5 commands(2); Systolic BP: > 89 mm Hg(4); Respiratory Rate: 10 to 29 per min(4); [place] Score: 15; Trauma Score: 12 MDM: 10:03 Patient medically screened. [facility] 10:29 Data reviewed: vital signs, nurses notes, lab test result(s), EKG, radiologic studies, [facility] CT scan, plain films. 05/29 10:16 Order name: Basic Metabolic Panel; Complete Time: 12:49 [facility] 05/29 10:16 Order name: CBC with Diff; Complete Time: 12:49 [facility] 05/29 10:16 Order name: Ckmb; Complete Time: 12:49 [facility] 05/29 10:16 Order name: CPK; Complete Time: 12:49 [facility] 05/29 10:16 Order name: LFT's; Complete Time: 12:49 [facility] 05/29 10:16 Order name: Magnesium; Complete Time: 12:49 [facility] 05/29 10:16 Order name: NT PRO-BNP; Complete Time: 12:49 [facility] 05/29 10:16 Order name: PT-INR; Complete Time: 12:49 [facility] 05/29 10:16 Order name: Ptt, Activated; Complete Time: 12:49 [facility] 05/29 10:16 Order name: Troponin (emerg Dept Use Only); Complete Time: 12:49 [facility] 05/29 10:16 Order name: Lipase; Complete Time: 12:49 [facility] 05/29 10:26 Order name: TSH; Complete Time: 12:49 [facility] 05/29 11:01 Order name: Urine Dipstick--Ancillary (enter results) 05/29 10:16 Order name: XRAY Chest (1 view); Complete Time: 12:49 [facility] 05/29 10:16 Order name: CT Head C Spine; Complete Time: 12:49 [facility] 05/29 11:02 Order name: Urine Dipstick-Ancillary; Complete Time: 12:49 [facility] 05/29 11:19 Order name: T4 Free; Complete Time: 12:49 [facility] 05/29 12:51 Order name: Urine Culture [facility] 05/29 13:04 Order name: Echo with Doppler [facility] 05/29 13:04 Order name: Basic Metabolic Panel [facility] 05/29 13:04 Order name: Basic Metabolic Panel [facility] 05/29 13:04 Order name: CBC with Automated Diff [facility] 05/29 13:04 Order name: CBC with Automated Diff [facility] 05/29 13:04 Order name: Troponin I [facility] 05/29 13:04 Order name: Troponin I [facility] 05/29 13:04 Order name: Troponin I [facility] 05/29 13:04 Order name: Chest Single View [facility] 05/29 13:04 Order name: Chest Single View [facility] 05/29 13:04 Order name: Carotid Artery Bilateral [facility] 05/29 10:16 Order name: EKG; Complete Time: 10:17 [facility] 05/29 10:16 Order name: Cardiac monitoring; Complete Time: 10:25 [facility] 05/29 10:16 Order name: EKG - Nurse/Tech; Complete Time: 10:25 [facility] 05/29 10:16 Order name: IV Saline Lock; Complete Time: 10: [facility] 05/29 10:16 Order name: Labs collected and sent; Complete Time: : [facility] 05/29 10:16 Order name: O2 Per Protocol; Complete Time: 10:25 [facility] 05/29 10:16 Order name: O2 Sat Monitoring; Complete Time: 10:26 [facility] 05/29 10:16 Order name: Urine Dipstick-Ancillary (obtain specimen); Complete Time: 11:27 [facility] 05/29 12:14 Order name: Diet Heart Healthy; Complete Time: 12:14 05/29 13:04 Order name: CONS Physician Consult [facility] 05/29 13:04 Order name: Consistent Carb (ADA) 1800 [address] [facility] 05/29 13:04 Order name: EKG Electrocardiogram [facility] 05/29 13:04 Order name: EKG Electrocardiogram [facility] 05/29 13:04 Order name: EKG Electrocardiogram [facility] 05/29 13:04 Order name: EKG Electrocardiogram [facility] 05/29 13:04 Order name: EKG Electrocardiogram [facility] Administered Medications: 10:40 Drug: NS 0.9% 1000 ml Route: IV; Rate: 125 ml/hr; Site: left forearm; jb4 14:37 Follow up: IV Status: Order to discontinue infusion aa5 13:16 Drug: Insulin Regular Human 8 units {Co-Signature: aa5 (Nida Hernandez RN).} Route: la1 Sub-Q; Site: left upper arm; 14:38 Follow up: Response: No adverse reaction aa5 13:17 Drug: Bactrim (160 mg-800 mg (DS) 1 tablet Route: PO; aa5 14:38 Follow up: Response: No adverse reaction aa5 Point of Care Testing: Blood Glucose: 10:05 Blood Glucose: 310 mg/dL; aa5 14:30 Blood Glucose: 354 mg/dL; aa5 Ranges: Critical Glucose Levels:Adult <50 mg/dl or >400 mg/dl <40 mg/dl or >180 mg/dl Disposition: 05/29/18 12:56 Hospitalization ordered by Kalen Tiwari for Observation. Preliminary diagnosis are Syncope and collapse - near, Cystitis, Weakness, Bradycardia, unspecified, Unspecified kidney failure. - Bed requested for Telemetry/MedSurg (observation). - Status is Observation. aa5 - Condition is Stable. - Problem is new. - Symptoms have improved. UTI on Admission? Yes Signatures: Dispatcher [employer] EDMA Migdalia Salgado Corey, MD MD cha Calderon, Audri, RN RN aa5 Giancarlo Chapman RN RN la1 Clarke Waggoner RN RN jb4 Nida Hernandez RN aa5 Corrections: (The following items were deleted from the chart) 11:40 10:17 Urine Culture+BA.LAB.BRZ ordered. [facility]MA 14:12 12:56 Hospitalization Ordered by Kalen Tiwari MD for Observation. Preliminary diagnosis bd is Syncope and collapse - near; Cystitis; Weakness; Bradycardia, unspecified; Unspecified kidney failure. Bed requested for Telemetry/MedSurg (observation). Status is Observation. Condition is Stable. Problem is new. Symptoms have improved. UTI on Admission? Yes. [facility] 14:40 14:12 05/29/2018 12:56 Hospitalization Ordered by Kalen Tiwari MD for Observation. aa5 Preliminary diagnosis is Syncope and collapse - near; Cystitis; Weakness; Bradycardia, unspecified; Unspecified kidney failure. Bed requested for Telemetry/MedSurg (observation). Status is Observation. Condition is Stable. Problem is new. Symptoms have improved. UTI on Admission? Yes. bd
--- NOTE | 2018-05-29 12:57 | ER ---
Nurse's Notes [facility] Name: Leslie Cedeño Age: 82 yrs Sex: Female : 1935 Arrival Date: 05/29/2018 Time: 10:01 Bed 2 Private MD: Diagnosis: Syncope and collapse-near;Cystitis;Weakness;Bradycardia, unspecified;Unspecified kidney failure Presentation: 05/29 10:01 Presenting complaint: EMS states: pt was in the shower and felt lightheaded and felt aa5 like her knees were going to give out, pt came out of shower knees gave out and she fell hitting the back of her head, no LOC. EMS also reports pt's HR was 20 bpm at times. Care prior to arrival: Medication(s) given: zofran 4 mg, IV initiated. 22 GA, in the left forearm, Glucose check: 357. Mechanism of Injury: Fall from standing position. Trauma event details: Injury occurred in the [facility], Injury occurred: at home. Injury occurred: May 29, 2018. 10:01 Acuity: ETIENNE 2 aa5 10:01 Method Of Arrival: EMS: [facility] aa5 10:01 Transition of care: patient was not received from another setting of care. Onset of aa5 symptoms was May 29, 2018. Risk Assessment: Do you want to hurt yourself or someone else? Patient reports no desire to harm self or others. Initial Sepsis Screen: Does the patient meet any 2 criteria? No. Patient's initial sepsis screen is negative. Does the patient have a suspected source of infection? No. Patient's initial sepsis screen is negative. Trauma Activation: Alert Physician: ED Physician; Name: ; Notified At: ; Arrived At: Physician: General Surgeon; Name: ; Notified At: ; Arrived At: Physician: Radiology; Name: ; Notified At: ; Arrived At: Physician: Respiratory; Name: ; Notified At: ; Arrived At: Physician: Lab; Name: ; Notified At: ; Arrived At: Historical: - Allergies: 10:01 Keflex; aa5 10:01 Levaquin; aa5 10:01 PENICILLINS; aa5 10:01 Trulicity; aa5 - Home Meds: 10:01 clopidogrel Oral [Active]; fenofibrate Oral [Active]; hydrochlorothiazide 12.5 mg Oral aa5 cap 1 cap once daily [Active]; Lasix Oral [Active]; levimir [Active]; levothyroxine 125 mcg tab 1 tab once daily [Active]; Metoprolol Tartrate Oral once daily [Active]; Niacin Oral [Active]; Novolin 70/30 [place] Sub-Q [Active]; pantoprazole 20 mg Oral TbEC 1 tab once daily [Active]; Simvastatin Oral [Active]; symbicort [Active]; Zetia 10 mg Oral tab [Active]; - PMHx: 10:01 Diabetes - IDDM; heart problems; Hypertension; aa5 - PSHx: 10:01 Cholecystectomy; Hernia repair; Thyroidectomy; hemorrhoidectomy; Hysterectomy; Hammer aa5 toe repair; Angioplasty; Heart stents; Right shoulder joint replacement; Melanoma removed from L ankle; Basal Cell carcinoma removed from nose; Colon polyps removed; Cataracts surgery; - Immunization history:: Adult Immunizations up to date. - Ebola Screening: : No symptoms or risks identified at this time. - Family history:: not pertinent. - Social history:: Smoking status: Patient/guardian denies using tobacco. Screenin:05 Abuse screen: Denies threats or abuse. Nutritional screening: No deficits noted. aa5 Tuberculosis screening: No symptoms or risk factors identified. Fall Risk Fall in past 12 months (25 points). IV access (20 points). Total [place] Fall Scale indicates High Risk Score (45 or more points). Fall prevention measures have been instituted. Side Rails Up X 2 Placed Close to Nursing Station. Primary Survey: 10:01 A: Airway: patent. Breathing/Chest: Respiratory pattern: regular, Respiratory effort: la1 spontaneous, unlabored. Circulation: Skin color: pink. Disability Alert. 10:15 Reassessment Airway Airway Patent Breathing/Chest Respiratory pattern Regular aa5 Respiratory effort Spontaneous Unlabored Circulation Color [place] Disability Alert. Secondary Survey: 10:02 HEENT: Head Other Pt reports hitting back of head on wall, denies pain at this time. la1 Gastrointestinal: No deficits noted. : No deficits noted. Musculoskeletal: No deficits noted. Assessment: 10:02 General: Appears comfortable, Behavior is calm, cooperative. Pain: Denies pain. Neuro: aa5 Level of Consciousness is awake, alert, obeys commands, Oriented to person, place, time, situation, Global Category Manager are weak bilaterally Moves all extremities. Speech is normal, Facial symmetry appears normal, Pupils are PERRLA, Pt reports feeling lightheaded and generalized weakness since this morning when she was taking a shower. . Denies dizziness. EENT: No signs and/or symptoms were reported regarding the EENT system. Cardiovascular: Heart tones S1 S2 present Rhythm is sinus bradycardia. Respiratory: Airway is patent Respiratory effort is even, unlabored, Respiratory pattern is regular, symmetrical, Breath sounds are clear bilaterally. GI: Abdomen is round non-distended, Bowel sounds present X 4 quads. Abd is soft and non tender X 4 quads. Patient currently denies nausea, vomiting. : No signs and/or symptoms were reported regarding the genitourinary system. Derm: Skin is pink, warm \T\ dry. Musculoskeletal: Range of motion: intact in all extremities. 11:05 Reassessment: Patient and/or family updated on plan of care and expected duration. Pain aa5 level reassessed. Patient is alert, oriented x 3, equal unlabored respirations, skin warm/dry/pink. Patient denies pain at this time. Patient states symptoms have not improved. Cardiovascular: Rhythm is sinus bradycardia. 12:10 Reassessment: Patient and/or family updated on plan of care and expected duration. Pain aa5 level reassessed. Patient is alert, oriented x 3, equal unlabored respirations, skin warm/dry/pink. Pt currently denies lightheadedness, reports generalized weakness has not improved. Awaiting disposition. 12:10 Reassessment: Patient denies pain at this time. Cardiovascular: Rhythm is sinus aa5 bradycardia. 13:15 Reassessment: Patient and/or family updated on plan of care and expected duration. Pain aa5 level reassessed. Patient is alert, oriented x 3, equal unlabored respirations, skin warm/dry/pink. Patient denies pain at this time. Pt sitting up in bed eating lunch, pt tolerating well . 14:10 Reassessment: Patient and/or family updated on plan of care and expected duration. Pain aa5 level reassessed. Patient is alert, oriented x 3, equal unlabored respirations, skin warm/dry/pink. Patient denies pain at this time. Pt notified of wait time for transfer to Room 201. 14:30 Reassessment: Patient is alert, oriented x 3, equal unlabored respirations, skin aa5 warm/dry/pink. Patient denies pain at this time. Vital Signs: 10:02 BP 154 / 47; Pulse 49; Resp 14 S; Temp 98.3(O); Pulse Ox 98% on R/A; Pain 0/10; la1 10:30 BP 158 / 66; Pulse 48; Resp 16 S; Pulse Ox 96% on R/A; aa5 11:00 BP 145 / 45; Pulse 46; Resp 16 S; Pulse Ox 96% on R/A; aa5 11:30 BP 129 / 46; Pulse 48; Resp 14 S; Pulse Ox 97% on R/A; aa5 11:35 Pulse 49 MON; Resp 14; Pulse Ox 100% on R/A; jp3 12:30 BP 138 / 47; Pulse 48; Resp 14 S; Pulse Ox 98% on R/A; aa5 13:30 BP 105 / 50; Pulse 50; Resp 16 S; Pulse Ox 98% on R/A; aa5 14:30 BP 120 / 49; Pulse 50; Resp 16 S; Temp 98.0(TE); Pulse Ox 98% on R/A; Pain 0/10; aa5 Taylor Coma Score: 10:02 Eye Response: spontaneous(4). Verbal Response: oriented(5). Motor Response: obeys la1 commands(6). Total: 15. 13:30 Eye Response: spontaneous(4). Verbal Response: oriented(5). Motor Response: obeys aa5 commands(6). Total: 15. 14:30 Eye Response: spontaneous(4). Verbal Response: oriented(5). Motor Response: obeys aa5 commands(6). Total: 15. Trauma Score (Adult): 10:02 Eye Response: spontaneous(1); Verbal Response: oriented(1); Motor Response: obeys la1 commands(2); Systolic BP: > 89 mm Hg(4); Respiratory Rate: 10 to 29 per min(4); Taylor Score: 15; Trauma Score: 12 10:30 Eye Response: spontaneous(1); Verbal Response: oriented(1); Motor Response: obeys aa5 commands(2); Systolic BP: > 89 mm Hg(4); Respiratory Rate: 10 to 29 per min(4); Taylor Score: 15; Trauma Score: 12 11:00 Eye Response: spontaneous(1); Verbal Response: oriented(1); Motor Response: obeys aa5 commands(2); Systolic BP: > 89 mm Hg(4); Respiratory Rate: 10 to 29 per min(4); Taylor Score: 15; Trauma Score: 12 11:30 Eye Response: spontaneous(1); Verbal Response: oriented(1); Motor Response: obeys aa5 commands(2); Systolic BP: > 89 mm Hg(4); Respiratory Rate: 10 to 29 per min(4); [place] Score: 15; Trauma Score: 12 12:30 Eye Response: spontaneous(1); Verbal Response: oriented(1); Motor Response: obeys aa5 commands(2); Systolic BP: > 89 mm Hg(4); Respiratory Rate: 10 to 29 per min(4); [place] Score: 15; Trauma Score: 12 13:30 Eye Response: spontaneous(1); Verbal Response: oriented(1); Motor Response: obeys aa5 commands(2); Systolic BP: > 89 mm Hg(4); Respiratory Rate: 10 to 29 per min(4); Taylor Score: 15; Trauma Score: 12 14:30 Eye Response: spontaneous(1); Verbal Response: oriented(1); Motor Response: obeys aa5 commands(2); Systolic BP: > 89 mm Hg(4); Respiratory Rate: 10 to 29 per min(4); [place] Score: 15; Trauma Score: 12 ED Course: 10:01 Patient arrived in ED. aa5 10:01 Arm band placed on. aa5 10:01 Patient has correct armband on for positive identification. Placed in gown. Bed in low aa5 position. Call light in reach. Side rails up X2. security monitor on. Pulse ox on. NIBP on. 10:03 Davidson Cisneros MD is Attending Physician. rj 10:05 Triage completed. aa5 10:05 Thermoregulation: warm blanket given to patient. aa5 10:05 Patient maintains SpO2 saturation greater than 95% on room air. aa5 10:08 EKG done, by vacuum technician. reviewed by Davidson Cisneros MD. at1 10:16 Giancarlo Chapman, RN is Primary Nurse. la1 10:37 CT Head C Spine In Process Unspecified. EDMS 10:38 X-ray completed. Portable x-ray completed in exam room. Patient tolerated procedure sw well. 10:47 XRAY Chest (1 view) In Process Unspecified. EDMS 11:34 Assisted with bedpan. jp3 12:55 Kalen Tiwari MD is Hospitalizing Provider. [facility] 14:30 No provider procedures requiring assistance completed. Patient admitted, IV remains in aa5 place. Administered Medications: 10:40 Drug: NS 0.9% 1000 ml Route: IV; Rate: 125 ml/hr; Site: left forearm; jb4 14:37 Follow up: IV Status: Order to discontinue infusion aa5 13:16 Drug: Insulin Regular Human 8 units {Co-Signature: aa5 (Nida Hernandez RN).} Route: la1 Sub-Q; Site: left upper arm; 14:38 Follow up: Response: No adverse reaction aa5 13:17 Drug: Bactrim (160 mg-800 mg (DS) 1 tablet Route: PO; aa5 14:38 Follow up: Response: No adverse reaction aa5 Point of Care Testing: Blood Glucose: 10:05 Blood Glucose: 310 mg/dL; aa5 14:30 Blood Glucose: 354 mg/dL; aa5 Ranges: Output: 13:00 Urine: 60ml (Voided); Total: 60ml. aa5 Outcome: 12:56 Decision to Hospitalize by Provider. [facility] 13:00 Patient's length of stay in the Emergency Department was greater than 2 hours. due to aa5 awaiting MD to review radiology results Patient's length of stay extended due to 14:38 Admitted to Tele accompanied by [facility], via stretcher, room 201, Report called to [place] [id number] [place] 14:38 Condition: stable 14:38 Instructed on the need for admit, Demonstrated understanding of instructions. 14:40 Patient left the ED. aa5 Signatures: Dispatcher [employer] Davidson Leon MD MD cha Calderon, Audri, RN RN aa5 Alicia goel, director of corporate communications EKG Tat1 Giancarlo Chapman, RN RN la1 Maryuri Almodovar James, RN RN jb4 Bakari Trujillo jp3 Nida Hernandez RN aa5 Corrections: (The following items were deleted from the chart) 10:20 10:02 BP 154 / 47; Pulse 49bpm; Resp 14bpm; Spontaneous; Pulse Ox 98% RA; Pain 0/10; la1la1
[2018-05-29] MEDS ORDERED: ACETAMINOPHEN 500 MG TAB PO PRN (13:00)
[2018-05-29] MEDS ORDERED: ONDANSETRON 4 MG/2 ML VIAL IV PRN (13:00)
[2018-05-29] MEDS ORDERED: D50W 25 GM/50 ML SYRINGE IV PRN (13:01)
[2018-05-29] MEDS ORDERED: GLUCAGON 1 MG/VIAL IM PRN (13:01)
--- NOTE | 2018-05-29 14:10 | RAD REPORT ---
EXAM DESCRIPTION: WILLIAMS Camara CP - 05/29/2018 1:59 pm CLINICAL HISTORY: Syncope COMPARISON: None. TECHNIQUE: Real-time sonographic evaluation of both carotid systems was performed. Doppler interroga tion was performed with waveform tracing bilaterally. FINDINGS: Normal high resistance waveforms are noted in both external carotid arteries. The common c arotid arteries and internal carotid arteries show normal low resistance waveforms. Calcified plaquing changes are present in each carotid bulb extending into the origins of the bilater al internal and external carotid velocities. Right common carotid peak systolic velocity was 70 cm/se cond with internal carotid velocities ranging from 55-107 cm/second. Right external carotid velocity was 160 cm/second. External carotid stenoses are not clinically significant. The left common carotid velocity was 86 cm/second with internal carotid velocities ranging from 66-113 cm/second. ICA/ CCA ra tios were 1.5 on the right and 1.3 on the left. Vertebral artery assessment was limited. Velocity values and ratios were recorded and are retained in the patient's imaging records. IMPRESSION: Calcified plaquing changes in the bilateral carotid bulb and proximal internal carotid a rtery's. Currently atherosclerotic changes do not yield a hemodynamically significant degree of stenosis.
[2018-05-29] MEDS ORDERED: PNEUMOCOCCAL VACCINE 0.5 ML IMVAC ONE (17:00)
[2018-05-29] MEDS: INSULIN -REGULAR HUMAN 50 UNIT/0.5 ML ML SQ SCH ×2 (17:23→22:11)
--- NOTE | 2018-05-29 17:28 | EKG ---
Test Date: 2018-05-29 Test Time: 10:05:40 Provisioning Specialist: YVROSE MEASUREMENT RESULTS: Intervals: Rate: 46 TX: 170 QRSD: 92 QT: 488 QTc: 427 [place]: P: 62 TX: 170 QRS: -12 T: 121 INTERPRETIVE STATEMENTS: Sinus bradycardia Left ventricular hypertrophy with repolarization abnormality Inferior infarct, age undetermined Abnormal ECG Compared to ECG 03/28/2016 11:52:44 Left ventricular hypertrophy now present Early repolarization now present Myocardial infarct finding now present ST (T wave) deviation no longer present Electronically Signed On 05-29-18 17:27:52 CDT by Boni Munson
[2018-05-29] MEDS: SMZ./TMP. 800/160 MG TABLET PO SCH (20:32)
[2018-05-29] MEDS: INSULIN DEGLUDEC 40 UNIT SQ SCH (21:00)
[2018-05-29] MEDS: ISOSORBIDE MONO SR 30 MG TAB PO SCH (22:10)
[2018-05-29] MEDS: ATORVASTATIN 10 MG TAB PO SCH (22:10)
--- NOTE | 2018-05-29 22:47 | CON ---
Chief Complaint: Loss of consciousness. History Of Present Illness: Mrs. Cedeño was taking a shower. She started to feel lightheaded. She t hen tried to walk and fell on the way. She was trying to reach her bed and lay down. She did not ma ke it. She felt lightheaded. She was told by the ambulance drivers that her heart rate was slow, an d her blood pressure was low. Mrs. Cedeño has a history of heart disease with multiple intracoronary stents. She is also known to have aortic stenosis. She has renal insufficiency as well. Since bein g here in the hospital, carotid ultrasound does not reveal a significant stenosis. They were unable to comment on vertebral artery flow direction. An electrocardiogram reveals sinus bradycardia, LVH, old inferior infarct. A CT of the head does not reveal any acute findings. No intracranial hemorrha ge or mass or evidence of a stroke. Medications: Her outpatient medications have been Plavix, levothyroxine, insulin, ezetimibe, simvast atin, Protonix, metoprolol isosorbide, irbesartan, and fenofibrate. Physical Examination: General: She is 5 feet 2 inches, 163 pounds. HEENT: Normal. Lungs: Clear. Heart: Reveals a systolic ejection murmur consistent with [id number]-[id number] aortic stenosis. I think the patient's low blood pressure and syncope may be caused by the numerous medications. She is on perhaps beta faby, should be reduced or stopped, and I am also concerned she may have enough aortic stenosis to have caused this. An echocardiogram will be done tomorrow. I agree with that. She probably needs to reduce the dose of both irbesartan and the beta faby. CONSUELO/CHIO Voice ID: [id number] Report ID: [id number]
[2018-05-30] MEDS: LEVOTHYROXINE SOD 0.125 MG TAB PO SCH (05:30)
[2018-05-30 05:57] LABS: Absolute Lymphocytes (CBC) 3.8 K/uL (0.7-4.9); Absolute Monocytes 0.8 K/uL (0.1-1.3); Absolute Neutrophil 5.3 K/uL (1.8-8.0); Basophils % 0.9 % (0-1.3); Eosinophils % 4.6 % (0-4.4); Hematocrit 35.4 % (36.0-45.0); Lymphocytes % 36.4 % (15.3-44.8); MCH 29.8 pg (27.0-35.0); MCV 87.9 fL (80-100); MPV 8.7 fL (7.6-11.3); Monocytes % 7.2 % (3.3-12.3); RBC Red Blood Cell Count 4.03 M/uL (3.86-4.86)
[2018-05-30 06:01] LABS: Potassium 4.4 mmol/L (3.5-5.1)
[2018-05-30] MEDS: INSULIN DEGLUDEC 40 UNIT SQ SCH ×2 (09:00→21:00)
[2018-05-30] MEDS ORDERED: ASPIRIN EC 81 MG TAB PO SCH (09:00)
[2018-05-30] MEDS: INSULIN -REGULAR HUMAN 50 UNIT/0.5 ML ML SQ SCH ×4 (09:20→21:58)
[2018-05-30] MEDS: ISOSORBIDE MONO SR 30 MG TAB PO SCH ×2 (09:22→21:57)
[2018-05-30] MEDS: PARoxetine HCl 10 MG TAB PO SCH (09:22)
[2018-05-30] MEDS: NIACIN 500 MG SR TAB PO SCH (09:22)
[2018-05-30] MEDS: SMZ./TMP. 800/160 MG TABLET PO SCH ×2 (09:22→21:57)
[2018-05-30] MEDS: PANTOPRAZOLE 40MG TABLET PO SCH (09:22)
[2018-05-30] MEDS: CLOPIDOGREL 75 MG TABLET PO SCH (09:23)
[2018-05-30] MEDS: EZETIMIBE 10 MG TAB PO SCH (09:23)
[2018-05-30] MEDS: FENOFIBRATE 160 MG TAB PO SCH (09:23)
[2018-05-30] MEDS: ASPIRIN 325 MG TAB PO SCH (09:23)
--- NOTE | 2018-05-30 13:25 | PN ---
Mrs. Cedeño has had stable vital signs. The order for an echocardiogram that I put in last night has been removed. I believe the issues are that she wants to go back and see , I think fermin t is fine. At this point, I think if we just reduce the amount of the 2 major blood pressure medicin es that probably led to low blood pressure in her and have her see is probably appropr iate, so I will sign off the case. CONSUELO/CHIO Voice ID: [id number] Report ID: [id number]
--- NOTE | 2018-05-30 17:55 | ECHO ---
HEIGHT: 5 ft 2 in WEIGHT: 163 lb 0 oz DATE OF STUDY: 05/30/[address]: 2-DIMENSIONAL: YES M.MODE: YES DOPPLER: YES COLOR FLOW: YES TDS: NO PORTABLE: NO DEFINITY: NO BUBBLE STUDY: NO DIAGNOSIS: AORTIC STENOSIS CARDIAC HISTORY: CATHERIZATION: NO SURGERY: NO PROSTHETIC VALVE: NO PACEMAKER: NO MEASUREMENTS (cm) DIASTOLIC (NORMALS) SYSTOLIC (NORMALS) IVSd 1.4 (0.6-1.2) LA Diam 3.3 (1.9-4.0) LVEF 73% LVIDd 4.0 (3.5-5.7) LVIDs 2.3 (2.0-3.5) %FS 42% LVPWd 1.4 (0.6-1.2) Ao Diam 2.8 (2.0-3.7) 2 DIMENSIONAL ASSESSMENT: RIGHT ATRIUM: NORMAL LEFT ATRIUM: DILATED RIGHT VENTRICLE: NORMAL LEFT VENTRICLE: LEFT VENTRICULAR HYPERTROPHY TRICUSPID VALVE: NORMAL MITRAL VALVE: NORMAL PULMONIC VALVE: NORMAL AORTIC VALVE: STENOSIS PERICARDIAL EFFUSION: NONE AORTIC ROOT: NORMAL LEFT VENTRICULAR WALL MOTION: NORMAL. DOPPLER/COLOR FLOW: MODERATE AORTIC STENOSIS. PRESSURE GRADIENT 40/25 ESTIMATED AORTIC VALVE AREA 1.1 CM. MILD AORTIC REGURGITATION, MITRAL REGURGITATION, AND TRICUSPID REGURGITATION. NORMAL RIGHT VENTRICULAR SYSTOLIC PRESSURE. COMMENTS: NORMAL LEFT VENTRICULAR EJECTION FRACTION. DILATED LEFT ATRIUM. LEFT VENTRICULAR HYPERTROPHY. MODERATE AORTIC STENOSIS. MILD MITRAL REGURGITATION, AORTIC REGURGITATION, AND TRICUSPID REGURGITATION. TECHNOLOGIST: CRYSTAL ROBIN
--- NOTE | 2018-05-30 21:13 | EKG ---
Test Date: 2018-05-30 Test Time: 08:18:02 Manager Tax: YVROSE MEASUREMENT RESULTS: Intervals: Rate: 60 IN: 180 QRSD: 90 QT: 454 QTc: 454 [place]: P: 57 IN: 180 QRS: -3 T: 113 INTERPRETIVE STATEMENTS: Normal sinus rhythm Left ventricular hypertrophy with repolarization abnormality Anterior infarct Abnormal ECG Compared to ECG 05/29/2018 10:05:40 Sinus bradycardia no longer present Electronically Signed On 05-30-18 21:12:37 CDT by Boni Munson
[2018-05-30] MEDS: ATORVASTATIN 10 MG TAB PO SCH (21:57)
--- NOTE | 2018-05-31 01:59 | HP ---
Date of Admission: 05/29/2018 Chief Complaint: Fall. History Of Present Illness: While the patient in the bathroom, felt dizzy and she fell down. She wa s brought to the emergency room. The patient had no history of complete loss of consciousness or sei zures. There is no history of prior seizures. Past Medical History: Extensive includes type 2 diabetes, hypertension, and heart disease, having harvey d angioplasty. Past Surgical History: Positive for gallbladder surgery, hemorrhoid and thyroid surgery, hysterectom y, foot surgery, right shoulder surgery, melanoma surgery, skin cancers, and cataract surgery. Family History: Noncontributory. Personal History: Nonsmoker. Allergies: KEFLEX, LEVAQUIN, PENICILLIN, AND TRULICITY. Review of Systems: There is no history of fever, chills, or rigors. Physical Examination: Vital Signs: Revealed the patient with heart rate of 50. General: However, fully alert. HEENT: There is no evidence of head injury. Neck: Supple. JVD negative. Chest: Clear heart systolic murmur noted. Bradycardia noted. Abdomen: Soft. Extremities: No edema. Laboratory Data: White count at admission was 13.4. Chem profile: BUN elevated to 52 and 2.7. Ran dom blood sugar of 310. BNP 1321. Assessment: 1.Fall. 2.Renal insufficiency, acute on chronic. 3.Known coronary artery disease. 4.Aortic stenosis. 5.Bradycardia probably secondary to beta blockers. Plan: The patient is put on telemetry. Her beta blockers are on hold. The patient is to be evaluat ed by Cardiology Service with echocardiogram, etc. BEAU/CHIO Voice ID: [id number]
[2018-05-31] MEDS: LEVOTHYROXINE SOD 0.125 MG TAB PO SCH (05:16)
[2018-05-31 05:18] LABS: Urine Appearance CLOUDY; Urine Bilirubin NEGATIVE (NEG); Urine Blood 2+ (NEG); Urine Color YELLOW; Urine Glucose 3+ (NEG); Urine Protein NEGATIVE (NEG); Urine Specific Gravity 1.015 (1.005-1.030); Urine Urobilinogen 0.2 mg/dL (0.2-1.0); Urine pH 5.5 (5.0-7.0)
[2018-05-31 05:22] LABS: Urine Microscopic Reflex ORDER UMIC
[2018-05-31 05:53] LABS: Urine Culture Reflex Order NOT NEEDED; Urine Yeast FEW (NONE SEEN)
[2018-05-31 05:54] LABS: Urine Bacteria <20 /HPF (<20)
[2018-05-31] MEDS: INSULIN -REGULAR HUMAN 50 UNIT/0.5 ML ML SQ SCH (08:43)
[2018-05-31] MEDS: SMZ./TMP. 800/160 MG TABLET PO SCH (08:44)
[2018-05-31] MEDS: EZETIMIBE 10 MG TAB PO SCH (08:44)
[2018-05-31] MEDS: PARoxetine HCl 10 MG TAB PO SCH ×2 (08:44→09:03)
[2018-05-31] MEDS: ISOSORBIDE MONO SR 30 MG TAB PO SCH (08:45)
[2018-05-31] MEDS: ASPIRIN 325 MG TAB PO SCH (08:45)
[2018-05-31] MEDS: FENOFIBRATE 160 MG TAB PO SCH (08:45)
[2018-05-31] MEDS: PANTOPRAZOLE 40MG TABLET PO SCH (08:45)
[2018-05-31] MEDS: CLOPIDOGREL 75 MG TABLET PO SCH (08:45)
[2018-05-31] MEDS: NIACIN 500 MG SR TAB PO SCH (08:45)
[2018-05-31] MEDS: INSULIN DEGLUDEC 40 UNIT SQ SCH (08:45)
== END 2018-05-31 11:14 | disposition home or self-care (01) ==
LOC: ER 10:10 → ERHOLD 12:58 → 2ND 14:32
PROVIDERS: ADMIT Internal Medicine; ATTEND Internal Medicine
DX: R55 Syncope and collapse (principal); R00.1 Bradycardia, unspecified; N28.9 Disorder of kidney and ureter, unspecified; I25.10 Atherosclerotic heart disease of native coronary artery without angina pectoris; E11.9 Type 2 diabetes mellitus without complications; I10 Essential (primary) hypertension; I35.0 Nonrheumatic aortic (valve) stenosis; Z88.0 Allergy status to penicillin; Z95.5 Presence of coronary angioplasty implant and graft; W18.39XA Other fall on same level, initial encounter; Y93.E1 Activity, personal bathing and showering; Y92.002 Bathroom of unspecified non-institutional (private) residence as the place of occurrence of the external cause
CPT/HCPCS: 36415; 70450; 71045; 72125; 80048 ×2; 80076; 81003; 82550; 82553; 82962 ×9; 83690; 83735; 83880; 84439; 84443; 84484 ×3; 85025 ×2; 85610; 85730; 87077; 87086; 87088; 87186; 93005 ×2; 93306; 93880; 96360; 96361; 96372; 99285; G0378 ×2; J7030; 81015

== ENCOUNTER 2018-11-23 18:05 | Emergency (ER) | payer OTHER ==
--- OUTSIDE RECORDS SUMMARY | 2018-11-23 18:07 | XMS REPORT | Clinical Summary ---
:1935 Author Organization [facility] Address [address] [place] [address] Care Team Providers Name Role Phone Unavailable Primary Care Provider Unavailable Allergies Active Allergy Reactions Severity Noted Date Comments Cephalexin Rash Low 06/11/2017 Levofloxacin Rash Low 06/11/2017 Penicillins Rash Low 06/11/2017 Medications Medication Sig Dispensed Refills Start Date End Date Status celecoxib Take 200 mg by mouth 0 Active (CELEBREX) 200 MG 2 (two) times daily capsule with breakfast and dinner. ALPRAZolam (XANAX) Take 0.25 mg by 0 Active 0.25 MG tablet mouth every 6 (six) hours as needed for Anxiety. isosorbide Take 30 mg by mouth 0 Active dinitrate (ISORDIL) 2 (two) times daily. 20 MG tablet pioglitazone Take 15 mg by mouth 0 Active (ACTOS) 15 MG daily. tablet traMADol-acetaminop Take 1-2 tablets by 0 Active hen (ULTRACET) mouth every 6 (six) 37.5-325 mg per hours as needed for tablet Pain. pantoprazole Take 40 mg by mouth 0 Active (PROTONIX) 40 MG daily. tablet simvastatin (ZOCOR) Take 20 mg by mouth 0 Active 20 MG tablet nightly. ezetimibe (ZETIA) Take 10 mg by mouth 0 Active 10 mg tablet daily. metoprolol Take 50 mg by mouth 0 Active (LOPRESSOR) 50 MG 2 (two) times daily. tablet ondansetron Take 4 mg by mouth 0 Active (ZOFRAN) 4 MG every 8 (eight) tablet hours as needed for Nausea. levothyroxine Take 125 mcg by 0 Active (SYNTHROID, mouth Every morning LEVOTHROID) 125 MCG on an empty stomach. tablet fenofibrate Take 160 mg by mouth 0 Active (TRIGLIDE,LOFIBRA) daily. 160 MG tablet clopidogrel Take 75 mg by mouth 0 Active (PLAVIX) 75 mg daily. tablet PARoxetine (PAXIL) Take 20 mg by mouth 0 Active 20 MG tablet every morning. aspirin 325 MG Take 325 mg by mouth 0 Active tablet daily. docusate sodium Take by mouth 2 0 Active (COLACE) 50 MG (two) times daily as capsule needed for Constipation. niacin 500 MG Take 500 mg by mouth 0 Active tablet daily with breakfast. lactobacillus Take 1 capsule by 0 Active rhamnosus, GG, mouth daily. (CULTURELLE) 10 billion cell capsule insulin glargine Inject 40 Units 0 Active (LANTUS) 100 subcutaneously 2 unit/mL injection (two) times daily Use as directed . furosemide (LASIX) Take 0.5 tablets (20 0 06/14/2017 Active 40 MG tablet mg total) by mouth daily. insulin detemir Inject 40 Units 24 mL 1 06/14/2017 (LEVEMIR) 100 subcutaneously 2 8 unit/mL injection (two) times daily. Active Problems Problem Noted Date Diverticulitis 06/11/2017 Family History Medical History Relation Name Comments [...] Assigned at Date Recorded Not on file Job Start Date Occupation Industry Not on file Not on file Not on file Travel History Travel Start Travel End No recent travel history available. Last Filed Vital Signs Not on file Plan of Treatment Not on file Results Not on fileafter 11/22/2017 Insurance Payer Benefit Plan / Group Subscriber ID Type Phone Address MEDICARE MEDICARE A B xxxxxxxxxx Medicare A[employer] - [place] CARE AET[employer] INDEMNITY NON CONTR xxxxxxxxx Comm
--- OUTSIDE RECORDS SUMMARY | 2018-11-23 18:08 | XMS REPORT ---
:1935 Author Organization [facility] Address [address] [place], [place] [address]linda Johnston [address] [place] [id number] Care Team Providers Name Role Phone MINA [...] (BEAKER) (test 315 mg/dL 70-110 TESTED AT [facility] [address] [place] [address] WAY mslq=[id number]) [facility] [address] POCT-GLUCOSE [id number] 11:57:00 Test Item Value Reference Range Comments POC-GLUCOSE METER (BEAKER) 224 mg/dL 70-110 TESTED AT [facility] [address] [facility] (test eqtt=7673) [facility] [address] POCT-GLUCOSE [id number] 06:03:00 Test Item Value Reference Range Comments POC-GLUCOSE METER (BEAKER) 118 mg/dL 70-110 TESTED AT [facility] [address] [facility] (test avsb=2554) [facility] [address] COMPREHENSIVE METABOLIC [id number] 04:28:00 Test Item Value Reference Range Comments TOTAL PROTEIN (BEAKER) 6.1 gm/dL 6.0-8.5 (test akbr=861) ALBUMIN (BEAKER) (test 3.4 g/dL 3.5-5.0 lobp=2186) ALKALINE PHOSPHATASE 55 U/L 30-115 (BEAKER) (test btex=523) BILIRUBIN TOTAL (BEAKER) 0.3 mg/dL 0.1-1.3 (test rfed=439) SODIUM (BEAKER) (test 140 meq/L 135-148 nowy=014) POTASSIUM (BEAKER) (test 4.4 meq/L 3.5-5.5 kpdw=177) CHLORIDE (BEAKER) (test 107 meq/L 98-106 zwap=761) CO2 (BEAKER) (test 23 meq/L 20-31 mzrl=324) BLOOD UREA NITROGEN 30 mg/dL 10-26 (BEAKER) (test jgeq=627) CREATININE (BEAKER) (test 2.27 mg/dL 0.50-1.20 xrix=050) GLUCOSE RANDOM (BEAKER) 122 mg/dL 70-110 (test nvqh=219) CALCIUM (BEAKER) (test 9.3 mg/dL 8.5-10.5 rnvg=853) AST (SGOT) (BEAKER) (test 19 U/L 5-40 fkvv=289) ALT (SGPT) (BEAKER) (test 12 U/L 6-50 aeor=497) EGFR (BEAKER) (test mL/min/1.73 sq m INSUFFICIENT CLINICAL DATA jmhg=1364) TO CALCULATE ESTIMATED GFR. CBC W/PLT COUNT & AUTO [id number] 03:44:00 Test Item Value Reference Range Comments WHITE BLOOD CELL COUNT (BEAKER) (test obpx=687) 9.4 K/ L 4.0-10.0 RED BLOOD CELL COUNT (BEAKER) (test rubj=122) 3.84 M/ L 4.00-5.00 HEMOGLOBIN (BEAKER) (test iyvz=039) 11.3 GM/DL 12.0-15.0 HEMATOCRIT (BEAKER) (test jusy=608) 34.4 % 36.0-45.0 MEAN CORPUSCULAR VOLUME (BEAKER) (test exlb=540) 89.6 fL 82.0-99.0 MEAN CORPUSCULAR HEMOGLOBIN (BEAKER) (test 29.3 pg 27.0-33.0 xvbd=698) MEAN CORPUSCULAR HEMOGLOBIN CONC (BEAKER) (test 32.7 GM/DL 32.0-36.0 jjug=336) RED CELL DISTRIBUTION WIDTH (BEAKER) (test 14.4 % 12.0-15.0 lqis=860) PLATELET COUNT (BEAKER) (test ntxb=574) 279 K/CU MM 150-430 MEAN PLATELET VOLUME (BEAKER) (test uqww=502) 8.1 fL 6.5-10.5 NUCLEATED RED BLOOD CELLS (BEAKER) (test 0 /100 WBC 0-0 uxvx=465) NEUTROPHILS RELATIVE PERCENT (BEAKER) (test 57 % pknb=316) LYMPHOCYTES RELATIVE PERCENT (BEAKER) (test 30 % goem=598) MONOCYTES RELATIVE PERCENT (BEAKER) (test 6 % qodi=250) EOSINOPHILS RELATIVE PERCENT (BEAKER) (test 7 % zxst=492) BASOPHILS RELATIVE PERCENT (BEAKER) (test 1 % xcsg=109) NEUTROPHILS ABSOLUTE COUNT (BEAKER) (test 5.40 K/ L 1.80-8.00 nzdj=047) LYMPHOCYTES ABSOLUTE COUNT (BEAKER) (test 2.80 K/ L 1.48-4.50 azry=458) MONOCYTES ABSOLUTE COUNT (BEAKER) (test 0.50 K/ L 0.00-1.30 zums=340) EOSINOPHILS ABSOLUTE COUNT (BEAKER) (test 0.60 K/ L 0.00-0.50 wcco=141) BASOPHILS ABSOLUTE COUNT (BEAKER) (test 0.10 K/ L 0.00-0.20 hysq=244) POCT-GLUCOSE [id number] 20:46:00 Test Item Value Reference Range Comments POC-GLUCOSE METER (BEAKER) 262 mg/dL 70-110 TESTED AT [facility] [address] [facility] (test rrtv=9022) [facility] [address] POCT-GLUCOSE [id number] 18:01:00 Test Item Value Reference Range Comments POC-GLUCOSE METER (BEAKER) 305 mg/dL 70-110 Notified NICOLASA RAYGOZA/TESTED AT [facility] (test zwhp=9128) [address] [facility] [address] [facility] [address] POCT-GLUCOSE [id number] 11:41:00 Test Item Value Reference Range Comments POC-GLUCOSE METER (BEAKER) 331 mg/dL 70-110 TESTED AT [facility] [address] [facility] (test kbpx=4404) [facility] [address] COMPREHENSIVE METABOLIC [id number] 05:16:00 Test Item Value Reference Range Comments TOTAL PROTEIN (BEAKER) 6.3 gm/dL 6.0-8.5 (test dtcj=367) ALBUMIN (BEAKER) (test 3.3 g/dL 3.5-5.0 pmtq=8339) ALKALINE PHOSPHATASE 67 U/L 30-115 (BEAKER) (test hxvg=305) BILIRUBIN TOTAL (BEAKER) 0.3 mg/dL 0.1-1.3 (test eclv=603) SODIUM (BEAKER) (test 137 meq/L 135-148 qotr=295) POTASSIUM (BEAKER) (test 4.2 meq/L 3.5-5.5 ausu=559) CHLORIDE (BEAKER) (test 105 meq/L 98-106 zmnb=030) CO2 (BEAKER) (test 22 meq/L 20-31 unhh=405) BLOOD UREA NITROGEN 36 mg/dL 10-26 (BEAKER) (test uqiy=369) CREATININE (BEAKER) (test 2.26 mg/dL 0.50-1.20 pzop=513) GLUCOSE RANDOM (BEAKER) 241 mg/dL 70-110 (test zmkm=615) CALCIUM (BEAKER) (test 9.5 mg/dL 8.5-10.5 qrsn=364) AST (SGOT) (BEAKER) (test 18 U/L 5-40 nwlj=018) ALT (SGPT) (BEAKER) (test 11 U/L 6-50 iwzk=642) EGFR (BEAKER) (test mL/min/1.73 sq m INSUFFICIENT CLINICAL DATA peau=9755) TO CALCULATE ESTIMATED GFR. CBC W/PLT COUNT & AUTO [id number] 04:49:00 Test Item Value Reference Range Comments WHITE BLOOD CELL COUNT (BEAKER) (test thcu=627) 9.3 K/ L 4.0-10.0 RED BLOOD CELL COUNT (BEAKER) (test sjcd=940) 3.89 M/ L 4.00-5.00 HEMOGLOBIN (BEAKER) (test ajrb=691) 11.5 GM/DL 12.0-15.0 HEMATOCRIT (BEAKER) (test lair=855) 34.9 % 36.0-45.0 MEAN CORPUSCULAR VOLUME (BEAKER) (test kggy=563) 89.7 fL 82.0-99.0 MEAN CORPUSCULAR HEMOGLOBIN (BEAKER) (test 29.4 pg 27.0-33.0 tlxq=405) MEAN CORPUSCULAR HEMOGLOBIN CONC (BEAKER) (test 32.8 GM/DL 32.0-36.0 lqlo=032) RED CELL DISTRIBUTION WIDTH (BEAKER) (test 14.2 % 12.0-15.0 dqhz=809) PLATELET COUNT (BEAKER) (test woos=413) 268 K/CU MM 150-430 MEAN PLATELET VOLUME (BEAKER) (test kqye=759) 8.7 fL 6.5-10.5 NUCLEATED RED BLOOD CELLS (BEAKER) (test 0 /100 WBC 0-0 ytro=469) NEUTROPHILS RELATIVE PERCENT (BEAKER) (test 59 % uomb=162) LYMPHOCYTES RELATIVE PERCENT (BEAKER) (test 30 % kwjy=556) MONOCYTES RELATIVE PERCENT (BEAKER) (test 5 % mpuk=726) EOSINOPHILS RELATIVE PERCENT (BEAKER) (test 7 % vpcv=794) BASOPHILS RELATIVE PERCENT (BEAKER) (test 0 % vtdc=510) NEUTROPHILS ABSOLUTE COUNT (BEAKER) (test 5.50 K/ L 1.80-8.00 jsil=430) LYMPHOCYTES ABSOLUTE COUNT (BEAKER) (test 2.70 K/ L 1.48-4.50 hobu=108) MONOCYTES ABSOLUTE COUNT (BEAKER) (test 0.50 K/ L 0.00-1.30 qtvc=359) EOSINOPHILS ABSOLUTE COUNT (BEAKER) (test 0.60 K/ L 0.00-0.50 mbfl=255) BASOPHILS ABSOLUTE COUNT (BEAKER) (test 0.00 K/ L 0.00-0.20 xgco=128) POCT-GLUCOSE [id number] 20:59:00 Test Item Value Reference Range Comments POC-GLUCOSE METER (BEAKER) 363 mg/dL 70-110 Notified NICOLASA RAYGOZA/TESTED AT [facility] (test excv=0649) [address] [facility] [address] POCT-GLUCOSE [id number] 17:17:00 Test Item Value Reference Range Comments POC-GLUCOSE METER (BEAKER) 314 mg/dL 70-110 TESTED AT [facility] [address] [facility] (test xmvk=6532) [facility] [address] BASIC METABOLIC [id number] 12:14:00 Test Item Value Reference Range Comments SODIUM (BEAKER) (test 134 meq/L 135-148 empw=642) POTASSIUM (BEAKER) (test 4.7 meq/L 3.5-5.5 xqlk=161) CHLORIDE (BEAKER) (test 98 meq/L 98-106 jdxl=337) CO2 (BEAKER) (test 23 meq/L 20-31 mmhz=443) BLOOD UREA NITROGEN 35 mg/dL 10-26 (BEAKER) (test zvda=480) CREATININE (BEAKER) (test 2.34 mg/dL 0.50-1.20 eqen=638) GLUCOSE RANDOM (BEAKER) 295 mg/dL 70-110 (test gxhe=571) CALCIUM (BEAKER) (test 10.0 mg/dL 8.5-10.5 uxfy=198) EGFR (BEAKER) (test mL/min/1.73 sq m INSUFFICIENT CLINICAL DATA qpit=4226) TO CALCULATE ESTIMATED GFR. CBC W/PLT COUNT & AUTO [id number] 11:37:00 Test Item Value Reference Range Comments WHITE BLOOD CELL COUNT (BEAKER) (test rxzi=156) 10.1 K/ L 4.0-10.0 RED BLOOD CELL COUNT (BEAKER) (test mdhy=029) 4.42 M/ L 4.00-5.00 HEMOGLOBIN (BEAKER) (test hsut=618) 13.0 GM/DL 12.0-15.0 HEMATOCRIT (BEAKER) (test gjcc=968) 39.6 % 36.0-45.0 MEAN CORPUSCULAR VOLUME (BEAKER) (test pgor=432) 89.5 fL 82.0-99.0 MEAN CORPUSCULAR HEMOGLOBIN (BEAKER) (test 29.4 pg 27.0-33.0 wfjc=779) MEAN CORPUSCULAR HEMOGLOBIN CONC (BEAKER) (test 32.8 GM/DL 32.0-36.0 ssen=606) RED CELL DISTRIBUTION WIDTH (BEAKER) (test 14.3 % 12.0-15.0 hscj=348) PLATELET COUNT (BEAKER) (test gpqe=716) 326 K/CU MM 150-430 MEAN PLATELET VOLUME (BEAKER) (test dsja=662) 8.7 fL 6.5-10.5 NUCLEATED RED BLOOD CELLS (BEAKER) (test 0 /100 WBC 0-0 hxsp=355) NEUTROPHILS RELATIVE PERCENT (BEAKER) (test 60 % cvkm=911) LYMPHOCYTES RELATIVE PERCENT (BEAKER) (test 27 % ynxi=011) MONOCYTES RELATIVE PERCENT (BEAKER) (test 7 % bvfb=307) EOSINOPHILS RELATIVE PERCENT (BEAKER) (test 6 % toed=345) BASOPHILS RELATIVE PERCENT (BEAKER) (test 0 % mfrw=225) NEUTROPHILS ABSOLUTE COUNT (BEAKER) (test 6.10 K/ L 1.80-8.00 rhrh=206) LYMPHOCYTES ABSOLUTE COUNT (BEAKER) (test 2.70 K/ L 1.48-4.50 opyp=182) MONOCYTES ABSOLUTE COUNT (BEAKER) (test 0.70 K/ L 0.00-1.30 qadf=564) EOSINOPHILS ABSOLUTE COUNT (BEAKER) (test 0.60 K/ L 0.00-0.50 vrwo=804) BASOPHILS ABSOLUTE COUNT (BEAKER) (test 0.00 K/ L 0.00-0.20 nbrz=842) POCT-GLUCOSE [id number] 11:32:00 Test Item Value Reference Range Comments POC-GLUCOSE METER (BEAKER) 293 mg/dL 70-110 TESTED AT [facility] [id number] [place] [address] (test tcju=7177) [facility] [address] POCT-GLUCOSE [id number] 06:01:00 Test Item Value Reference Range Comments POC-GLUCOSE METER (BEAKER) 294 mg/dL 70-110 TESTED AT [facility] [address] [place] [address] (test bzea=6767) [facility] [address] BASIC METABOLIC [id number] 05:34:00 Test Item Value Reference Range Comments SODIUM (BEAKER) (test 136 meq/L 135-148 skvq=026) POTASSIUM (BEAKER) (test 4.1 meq/L 3.5-5.5 fesc=283) CHLORIDE (BEAKER) (test 101 meq/L 98-106 wslt=263) CO2 (BEAKER) (test 22 meq/L 20-31 ejkp=889) BLOOD UREA NITROGEN 34 mg/dL 10-26 (BEAKER) (test ulnw=168) CREATININE (BEAKER) (test 2.42 mg/dL 0.50-1.20 iwye=925) GLUCOSE RANDOM (BEAKER) 273 mg/dL 70-110 (test ythg=744) CALCIUM (BEAKER) (test 9.7 mg/dL 8.5-10.5 uqsj=344) EGFR (BEAKER) (test mL/min/1.73 sq m INSUFFICIENT CLINICAL DATA dmam=5752) TO CALCULATE ESTIMATED GFR. COMPREHENSIVE METABOLIC [id number] 05:34:00 Test Item Value Reference Range Comments TOTAL PROTEIN (BEAKER) 6.5 gm/dL 6.0-8.5 (test tget=658) ALBUMIN (BEAKER) (test 3.6 g/dL 3.5-5.0 jgms=1882) ALKALINE PHOSPHATASE 59 U/L 30-115 (BEAKER) (test jamg=062) BILIRUBIN TOTAL (BEAKER) 0.3 mg/dL 0.1-1.3 (test mcxc=851) SODIUM (BEAKER) (test 136 meq/L 135-148 mhfj=656) POTASSIUM (BEAKER) (test 4.1 meq/L 3.5-5.5 zkcz=583) CHLORIDE (BEAKER) (test 101 meq/L 98-106 sccw=540) CO2 (BEAKER) (test 22 meq/L 20-31 cpoc=100) BLOOD UREA NITROGEN 34 mg/dL 10-26 (BEAKER) (test sbwp=509) CREATININE (BEAKER) (test 2.42 mg/dL 0.50-1.20 kfhf=065) GLUCOSE RANDOM (BEAKER) 273 mg/dL 70-110 (test sspj=944) CALCIUM (BEAKER) (test 9.7 mg/dL 8.5-10.5 zhlr=942) AST (SGOT) (BEAKER) (test 13 U/L 5-40 cijs=930) ALT (SGPT) (BEAKER) (test 10 U/L 6-50 lwkc=575) EGFR (BEAKER) (test mL/min/1.73 sq m INSUFFICIENT CLINICAL DATA sakx=7108) TO CALCULATE ESTIMATED GFR. CBC W/PLT COUNT & AUTO [id number] 05:06:00 Test Item Value Reference Range Comments WHITE BLOOD CELL COUNT (BEAKER) (test tuyb=523) 9.2 K/ L 4.0-10.0 RED BLOOD CELL COUNT (BEAKER) (test eclh=329) 4.08 M/ L 4.00-5.00 HEMOGLOBIN (BEAKER) (test grhh=131) 12.1 GM/DL 12.0-15.0 HEMATOCRIT (BEAKER) (test wejb=441) 36.4 % 36.0-45.0 MEAN CORPUSCULAR VOLUME (BEAKER) (test paom=837) 89.1 fL 82.0-99.0 MEAN CORPUSCULAR HEMOGLOBIN (BEAKER) (test 29.6 pg 27.0-33.0 swer=543) MEAN CORPUSCULAR HEMOGLOBIN CONC (BEAKER) (test 33.2 GM/DL 32.0-36.0 znng=171) RED CELL DISTRIBUTION WIDTH (BEAKER) (test 14.2 % 12.0-15.0 pyrz=027) PLATELET COUNT (BEAKER) (test ukik=827) 278 K/CU MM 150-430 MEAN PLATELET VOLUME (BEAKER) (test bitt=777) 8.5 fL 6.5-10.5 NUCLEATED RED BLOOD CELLS (BEAKER) (test 0 /100 WBC 0-0 eiov=777) NEUTROPHILS RELATIVE PERCENT (BEAKER) (test 57 % cnnr=244) LYMPHOCYTES RELATIVE PERCENT (BEAKER) (test 30 % qtyn=470) MONOCYTES RELATIVE PERCENT (BEAKER) (test 6 % wkjw=757) EOSINOPHILS RELATIVE PERCENT (BEAKER) (test 6 % btsi=084) BASOPHILS RELATIVE PERCENT (BEAKER) (test 1 % jjcm=835) NEUTROPHILS ABSOLUTE COUNT (BEAKER) (test 5.20 K/ L 1.80-8.00 ovmq=136) LYMPHOCYTES ABSOLUTE COUNT (BEAKER) (test 2.80 K/ L 1.48-4.50 uhyl=113) MONOCYTES ABSOLUTE COUNT (BEAKER) (test 0.60 K/ L 0.00-1.30 cqna=647) EOSINOPHILS ABSOLUTE COUNT (BEAKER) (test 0.60 K/ L 0.00-0.50 jfjp=152) BASOPHILS ABSOLUTE COUNT (BEAKER) (test 0.10 K/ L 0.00-0.20 ctum=879) POCT-GLUCOSE [id number] 21:27:00 Test Item Value Reference Range Comments POC-GLUCOSE METER (BEAKER) 366 mg/dL 70-110 TESTED AT [facility] [id number] [place] [address] (test malb=4632) WAY [facility] [address] POCT-GLUCOSE [id number] 20:16:00 Test Item Value Reference Range Comments POC-GLUCOSE METER (BEAKER) 329 mg/dL 70-110 TESTED AT [facility] [id number] [place] [address] (test pdkv=0561) WAY [facility] [address] POCT-GLUCOSE [id number] 11:50:00 Test Item Value Reference Range Comments POC-GLUCOSE METER (BEAKER) 360 mg/dL 70-110 Notified NICOLASA RAYGOZA/TESTED AT [facility] (test nhwp=2657) [address] [facility] [address] [facility] [address] SEDIMENTATION [id number] 09:08:00 Test Item Value Reference Range Comments SEDIMENTATION RATE, ERYTHROCYTE (BEAKER) (test 55 mm/HR 0-40 sgdl=419) COMPREHENSIVE METABOLIC [id number] 06:16:00 Test Item Value Reference Range Comments TOTAL PROTEIN (BEAKER) 7.6 gm/dL 6.0-8.5 (test rgfg=624) ALBUMIN (BEAKER) (test 4.0 g/dL 3.5-5.0 mpjh=2563) ALKALINE PHOSPHATASE 70 U/L 30-115 (BEAKER) (test gakg=659) BILIRUBIN TOTAL (BEAKER) 0.4 mg/dL 0.1-1.3 (test ykkw=200) SODIUM (BEAKER) (test 132 meq/L 135-148 ztxm=082) POTASSIUM (BEAKER) (test 4.1 meq/L 3.5-5.5 aszb=047) CHLORIDE (BEAKER) (test 99 meq/L 98-106 cair=882) CO2 (BEAKER) (test 21 meq/L 20-31 krek=827) BLOOD UREA NITROGEN 28 mg/dL 10-26 (BEAKER) (test atet=748) CREATININE (BEAKER) (test 1.92 mg/dL 0.50-1.20 zsjz=610) GLUCOSE RANDOM (BEAKER) 380 mg/dL 70-110 (test rati=290) CALCIUM (BEAKER) (test 10.4 mg/dL 8.5-10.5 xbjb=788) AST (SGOT) (BEAKER) (test 15 U/L 5-40 kvgn=832) ALT (SGPT) (BEAKER) (test 10 U/L 6-50 zwzv=867) EGFR (BEAKER) (test mL/min/1.73 sq m INSUFFICIENT CLINICAL DATA umcf=5586) TO CALCULATE ESTIMATED GFR. POCT-GLUCOSE [id number] 06:15:00 Test Item Value Reference Range Comments POC-GLUCOSE METER (BEAKER) 357 mg/dL 70-110 TESTED AT [facility] [address] [facility] (test noip=7059) WAY [facility] [address] CBC W/PLT COUNT & AUTO [id number] 05:42:00 Test Item Value Reference Range Comments WHITE BLOOD CELL COUNT (BEAKER) (test ebhw=198) 10.7 K/ L 4.0-10.0 RED BLOOD CELL COUNT (BEAKER) (test nwum=297) 4.57 M/ L 4.00-5.00 HEMOGLOBIN (BEAKER) (test bnhs=994) 13.5 GM/DL 12.0-15.0 HEMATOCRIT (BEAKER) (test zdqi=271) 41.0 % 36.0-45.0 MEAN CORPUSCULAR VOLUME (BEAKER) (test wmys=079) 89.8 fL 82.0-99.0 MEAN CORPUSCULAR HEMOGLOBIN (BEAKER) (test 29.6 pg 27.0-33.0 mxqw=858) MEAN CORPUSCULAR HEMOGLOBIN CONC (BEAKER) (test 32.9 GM/DL 32.0-36.0 zbgy=206) RED CELL DISTRIBUTION WIDTH (BEAKER) (test 14.7 % 12.0-15.0 ptgq=800) PLATELET COUNT (BEAKER) (test dbwr=755) 270 K/CU MM 150-430 MEAN PLATELET VOLUME (BEAKER) (test maqk=568) 8.4 fL 6.5-10.5 NUCLEATED RED BLOOD CELLS (BEAKER) (test 0 /100 WBC 0-0 kmsj=710) NEUTROPHILS RELATIVE PERCENT (BEAKER) (test 69 % lqzm=967) LYMPHOCYTES RELATIVE PERCENT (BEAKER) (test 22 % pizl=864) MONOCYTES RELATIVE PERCENT (BEAKER) (test 5 % qglq=350) EOSINOPHILS RELATIVE PERCENT (BEAKER) (test 3 % wuye=143) BASOPHILS RELATIVE PERCENT (BEAKER) (test 1 % itsa=699) NEUTROPHILS ABSOLUTE COUNT (BEAKER) (test 7.40 K/ L 1.80-8.00 kcla=712) LYMPHOCYTES ABSOLUTE COUNT (BEAKER) (test 2.40 K/ L 1.48-4.50 krpb=901) MONOCYTES ABSOLUTE COUNT (BEAKER) (test 0.60 K/ L 0.00-1.30 mpvv=932) EOSINOPHILS ABSOLUTE COUNT (BEAKER) (test 0.30 K/ L 0.00-0.50 zigh=023) BASOPHILS ABSOLUTE COUNT (BEAKER) (test 0.00 K/ L 0.00-0.20 lbfo=559)
--- NOTE | 2018-11-23 18:48 | RAD REPORT ---
EXAM DESCRIPTION: CT - [id number] - 11/23/2018 6:32 pm CLINICAL HISTORY: Trauma, head and neck injury. PAIN COMPARISON: Head C Spine Mpr Wo Con dated 05/29/2018; Head C Spine Mpr Wo Con dated 07/17/2017 TECHNIQUE: Axial 5 mm thick images of the head were obtained. Axial 2 mm thick images of the cervical spine were obtained with sagittal and coronal reconstruction images generated and reviewed. All CT scans are performed using dose optimization technique as appropriate and may include automated exposure control or mA/KV adjustment according to patient size. FINDINGS: CT HEAD WITHOUT CONTRAST: No acute hemorrhage, hydrocephalus or extra-axial collection is identified.Moderate generalized brain atrophy is present with moderate periventricular and deep white matter chronic microvascular ischemi c changes.No areas of brain edema or midline shift. The paranasal sinuses and mastoids are clear.The calvarium is intact. Left-sided scalp hematoma. CT CERVICAL SPINE WITHOUT CONTRAST: No fracture or subluxation.Moderate mid and lower cervical degenerative changes.No prevertebral soft tissues swelling is identified. IMPRESSION: No acute intracranial or cervical spine findings.
--- NOTE | 2018-11-23 20:54 | EDPHYS ---
Physician Documentation [facility] Name: Leslie Cedeño Age: 83 yrs Sex: Female : 1935 Arrival Date: 11/23/2018 Time: 18:22 Bed 8 Private MD: ED Physician Johnny Blanco HPI: 11/23 20:53 This 83 yrs old Female presents to ER via EMS with complaints of Head Injury kb Without LOC-Adult. 20:54 Details of fall: The patient fell from an upright position, while walking. Onset: The kb symptoms/episode began/occurred just prior to arrival. Associated injuries: The patient sustained injury to the head, hematoma, laceration, 3 cm(s). Severity of symptoms: At their worst the symptoms were mild, in the emergency department the symptoms are unchanged. The patient has not experienced similar symptoms in the past. The patient has not recently seen a physician. Pt reports she normally uses walker in the house and a cane outside of the house. Was unloading her groceries without either device, lost her balance and fell. States she doesn't have great balance anyway. Denies any symptoms prior to or after falling, including dizziness, dyspnea, chest pain, lightheadedness, weakness. Denies LOC. . Historical: - Allergies: 18:31 Keflex; aj1 18:31 Levaquin; aj1 18:31 PENICILLINS; aj1 18:31 Trulicity; aj1 18:31 Demerol; aj1 - Home Meds: 18:31 clopidogrel Oral [Active]; fenofibrate Oral [Active]; hydrochlorothiazide 12.5 mg Oral aj1 cap 1 cap once daily [Active]; Lasix Oral [Active]; levimir [Active]; levothyroxine 125 mcg tab 1 tab once daily [Active]; Metoprolol Tartrate Oral once daily [Active]; Niacin Oral [Active]; Novolin 70/30 [place] Sub-Q [Active]; pantoprazole 20 mg Oral TbEC 1 tab once daily [Active]; Simvastatin Oral [Active]; symbicort [Active]; Zetia 10 mg Oral tab [Active]; - PMHx: 18:31 Diabetes - IDDM; heart problems; Hypertension; aj1 - Immunization history:: Flu vaccine is not up to date. - Social history:: Smoking status: Patient/guardian denies using tobacco. - Ebola Screening: : Patient denies travel to an Ebola-affected area in the 21 days before illness onset. ROS: 20:56 Constitutional: Negative for fever, chills, and weight loss, Eyes: Negative for injury, kb pain, redness, and discharge, ENT: Negative for injury, pain, and discharge, Neck: Negative for injury, pain, and swelling, Cardiovascular: Negative for chest pain, palpitations, and edema, Respiratory: Negative for shortness of breath, cough, wheezing, and pleuritic chest pain, Abdomen/GI: Negative for abdominal pain, nausea, vomiting, diarrhea, and constipation, MS/Extremity: Negative for injury and deformity, Neuro: Negative for headache, weakness, numbness, tingling, and seizure. 20:56 Skin: Positive for hematoma, laceration(s), of the scalp. Exam: 20:56 Constitutional: This is a well developed, well nourished patient who is awake, alert, kb and in no acute distress. Eyes: Pupils equal round and reactive to light, extra-ocular motions intact. Lids and lashes normal. Conjunctiva and sclera are non-icteric and not injected. Cornea within normal limits. Periorbital areas with no swelling, redness, or edema. ENT: Nares patent. No nasal discharge, no septal abnormalities noted. Tympanic membranes are normal and external auditory canals are clear. Oropharynx with no redness, swelling, or masses, exudates, or evidence of obstruction, uvula midline. Mucous membranes moist. Neck: Trachea midline, no thyromegaly or masses palpated, and no cervical lymphadenopathy. Supple, full range of motion without nuchal rigidity, or vertebral point tenderness. No Meningismus. Chest/axilla: Normal chest wall appearance and motion. Nontender with no deformity. No lesions are appreciated. Cardiovascular: Regular rate and rhythm with a normal S1 and S2. No gallops, murmurs, or rubs. Normal PMI, no JVD. No pulse deficits. Respiratory: Lungs have equal breath sounds bilaterally, clear to auscultation and percussion. No rales, rhonchi or wheezes noted. No increased work of breathing, no retractions or nasal flaring. Abdomen/GI: Soft, non-tender, with normal bowel sounds. No distension or tympany. No guarding or rebound. No evidence of tenderness throughout. MS/ Extremity: Pulses equal, no cyanosis. Neurovascular intact. Full, normal range of motion. Neuro: Awake and alert, GCS 15, oriented to person, place, time, and situation. Cranial nerves II-XII grossly intact. Motor strength 5/5 in all extremities. Sensory grossly intact. Cerebellar exam normal. Normal gait. 20:56 Head/face: Noted is no obvious of injury or deformity except hematoma, that is moderate, of the scalp, a laceration(s), that is superficial, that is linear, 3 cm(s). Vital Signs: 18:41 BP 164 / 56; Pulse 55; Resp 16; Pulse Ox 97% on R/A; Weight 73.94 kg (R); Height 5 ft. aj1 2 in. (157.48 cm) (R); Pain 0/10; 19:40 BP 157 / 62; Pulse 55; Resp 18; Pulse Ox 97% on R/A; ea 20:00 BP 157 / 66; Pulse 51; Resp 19; Pulse Ox 96% on R/A; ea 21:00 BP 157 / 53; Pulse 51; Resp 19; Pulse Ox 96% on R/A; ea 18:41 Body Mass Index 29.81 (73.94 kg, 157.48 cm) aj1 [place] Coma Score: 18:41 Eye Response: spontaneous(4). Verbal Response: oriented(5). Motor Response: obeys aj1 commands(6). Total: 15. 20:52 Eye Response: spontaneous(4). Verbal Response: oriented(5). Motor Response: obeys kb commands(6). Total: 15. Trauma Score (Adult): 18:41 Eye Response: spontaneous(1); Verbal Response: oriented(1); Motor Response: obeys aj1 commands(2); Systolic BP: > 89 mm Hg(4); Respiratory Rate: 10 to 29 per min(4); [place] Score: 15; Trauma Score: 12 Laceration: 20:52 Wound Repair of 3cm ( 1.2in ) subcutaneous laceration to scalp. Linear shaped.. Distal kb neuro/vascular/tendon intact. Wound prep: Extensive cleansing with hibiclenz by nurse, Wound irrigation with saline by nurse by ca. Skin closed with 3 1-0 [place] using staple gun. Dressed with Neosporin. Patient tolerated well. MDM: 18:25 Patient medically screened. kb 20:52 Data reviewed: vital signs, nurses notes. Data interpreted: Pulse oximetry: on room air kb is 97 %. Interpretation: normal. Counseling: I had a detailed discussion with the patient and/or guardian regarding: the historical points, exam findings, and any diagnostic results supporting the discharge/admit diagnosis, radiology results, the need for outpatient follow up, a family practitioner, to return to the emergency department if symptoms worsen or persist or if there are any questions or concerns that arise at home. 11/23 18:23 Order name: CT Head C Spine; Complete Time: 19:03 kb Administered Medications: No medications were administered Disposition: 11/24 12:48 Co-signature as Attending Physician, Johnny Blanco MD I agree with the assessment and wa plan of care. Disposition: 11/23/18 20:53 Discharged to Home. Impression: Fall on same level from slipping, tripping and stumbling, Laceration without foreign body of scalp. - Condition is Stable. - Discharge Instructions: Laceration Care, Adult, [id number], Fall Prevention in the Home, [id number], Head Injury, Adult, [id number]. - Medication Reconciliation Form, Thank You Letter, Antibiotic Education, Prescription Opioid Use form. - Follow up: Emergency Department; When: As needed; Reason: Worsening of condition. Follow up: Private Physician; When: 2 - 3 days; Reason: Recheck today's complaints, Continuance of care, Re-evaluation by your physician. - Notes: Have juliann removed in 7-10 days Signatures: Dispatcher [employer] EDKY Delma Huitron, INTENSIVE CARE MEDICINE SPECIALIST-C INTENSIVE CARE MEDICINE SPECIALIST-Ckb Shell Zafar, RN RN aj1 Amaya Webb RN RN ea Appiah, William, MD MD wa Corrections: (The following items were deleted from the chart) 11/23 22:20 20:53 11/23/2018 20:53 Discharged to Home. Impression: Fall on same level from ea slipping, tripping and stumbling; Laceration without foreign body of scalp. Condition is Stable. Forms are Medication Reconciliation Form, Thank You Letter, Antibiotic Education, Prescription Opioid Use. Follow up: Emergency Department; When: As needed; Reason: Worsening of condition. Follow up: Private Physician; When: 2 - 3 days; Reason: Recheck today's complaints, Continuance of care, Re-evaluation by your physician. kb
--- NOTE | 2018-11-23 20:54 | ER ---
Nurse's Notes [facility] Name: Leslie Cedeño Age: 83 yrs Sex: Female : 1935 Arrival Date: 11/23/2018 Time: 18:22 Bed 8 Private MD: Diagnosis: Fall on same level from slipping, tripping and stumbling;Laceration without foreign body of scalp Presentation: 11/23 18:23 Presenting complaint: Patient states: " I have a balance issue, I was carrying a bunch aj1 of groceries in my garage and I fell and hit my head" Patient denies LOC, vomiting. Laceration to left side of head covered with Kerlix, blood noted on dressing. Patient is A\\T\\O x4, reports taking Plavix. Care prior to arrival: None. Mechanism of Injury: Fall from standing position. Trauma event details: Injury occurred in the [facility]. 18:23 Acuity: ETIENNE 2 aj1 18:23 Method Of Arrival: EMS: [facility] aj1 18:27 Transition of care: patient was not received from another setting of care. Onset of aj1 symptoms was November 23, 2018. Risk Assessment: Do you want to hurt yourself or someone else? Patient reports no desire to harm self or others. Initial Sepsis Screen: Does the patient meet any 2 criteria? No. Patient's initial sepsis screen is negative. Does the patient have a suspected source of infection? No. Patient's initial sepsis screen is negative. Triage Assessment: 18:31 General: Appears in no apparent distress. comfortable, Behavior is calm, cooperative, aj1 appropriate for age. Pain: Denies pain. Neuro: Level of Consciousness is awake, alert, obeys commands, Oriented to person, place, time, situation, Moves all extremities. Full function Speech is normal, Facial symmetry appears normal. Cardiovascular: Patient's skin is warm and dry. Respiratory: Airway is patent Respiratory effort is even, unlabored, Respiratory pattern is regular, symmetrical. Historical: - Allergies: 18:31 Keflex; aj1 18:31 Levaquin; aj1 18:31 PENICILLINS; aj1 18:31 Trulicity; aj1 18:31 Demerol; aj1 - Home Meds: 18:31 clopidogrel Oral [Active]; fenofibrate Oral [Active]; hydrochlorothiazide 12.5 mg Oral aj1 cap 1 cap once daily [Active]; Lasix Oral [Active]; levimir [Active]; levothyroxine 125 mcg tab 1 tab once daily [Active]; Metoprolol Tartrate Oral once daily [Active]; Niacin Oral [Active]; Novolin 70/30 [place] Sub-Q [Active]; pantoprazole 20 mg Oral TbEC 1 tab once daily [Active]; Simvastatin Oral [Active]; symbicort [Active]; Zetia 10 mg Oral tab [Active]; - PMHx: 18:31 Diabetes - IDDM; heart problems; Hypertension; aj1 - Immunization history:: Flu vaccine is not up to date. - Social history:: Smoking status: Patient/guardian denies using tobacco. - Ebola Screening: : Patient denies travel to an Ebola-affected area in the 21 days before illness onset. Screenin:23 Abuse screen: Denies threats or abuse. Denies injuries from another. Tuberculosis aj1 screening: No symptoms or risk factors identified. 19:33 Nutritional screening: No deficits noted. Fall Risk Fall in past 12 months (25 points). ph No secondary diagnosis (0 pts). No IV (0 pts). Ambulatory Aid- Crutches/Cane/Walker (15 pts). Gait- Weak (10 pts.). Mental Status- Oriented to own ability (0 pts). Total [place]rese Fall Scale indicates High Risk Score (45 or more points). Fall prevention measures have been instituted. Side Rails Up X 2 Placed Close to Nursing Station Frequent Obs/Assessments Occuring As available patient and family educated on Fall Prevention Program and Strategies. Primary Survey: 18:35 NO uncontrolled hemorrhage observed. A: The patient is alert. Airway: patent, No ph supplemental oxygen in use on arrival. Oral cavity: clear, Trachea midline. Breathing/Chest: Respiratory pattern: regular, Respiratory effort: spontaneous, unlabored, Breath sounds: clear, bilaterally. Chest inspection: symmetrical rise and fall of the chest. Circulation: Pulses: palpable right radial artery and left radial artery. Skin color: pink, Skin temperature: warm, dry. Disability Alert. Exposure/Environment: There is no evidence of uncontrolled external bleeding. Obvious injury(ies) are noted at this time: abrasions to L elbow and laceration to L side of head. 19:50 Reassessment Airway Airway Patent Breathing/Chest Respiratory pattern Regular ea Respiratory effort Spontaneous Unlabored Breath sounds Clear Chest inspection Symmetrical Disability Alert. Assessment: 18:25 General: Appears in no apparent distress. comfortable, obese, well groomed, Behavior is ph calm, cooperative, appropriate for age, Denies fever, feeling ill. Pain: Complains of pain in head, L knee, L elbow. Neuro: Level of Consciousness is awake, alert, obeys commands, Oriented to person, place, time, situation, Reports headache in left occipital area, Denies weakness blurred vision dizziness. Cardiovascular: Capillary refill < 3 seconds in bilateral fingers Patient's skin is warm and dry. Respiratory: Airway is patent Respiratory effort is even, unlabored. GI: No signs and/or symptoms were reported involving the gastrointestinal system. Patient currently denies nausea. Derm: Skin is healthy with good turgor, Skin is pink, warm \\T\\ dry. Wound noted abrasions to L elbow. Musculoskeletal: Circulation, motion, and sensation intact. Range of motion: intact in all extremities. Injury Description: Laceration sustained to left parietal area. 19:50 General: Appears in no apparent distress. comfortable, Behavior is calm, cooperative, ea appropriate for age. Pain: Complains of pain in scalp. Neuro: Level of Consciousness is awake, alert, obeys commands, Oriented to person, place, time, situation. Cardiovascular: Patient's skin is warm and dry. Respiratory: Airway is patent Respiratory effort is even, unlabored. Derm: Wound noted left parietal area. Musculoskeletal: Circulation, motion, and sensation intact. Injury Description: Laceration sustained to left parietal area is 2.6 to 7.5 cm long. 20:40 Reassessment: Patient and/or family updated on plan of care and expected duration. Pain ea level reassessed. Patient is alert, oriented x 3, equal unlabored respirations, skin warm/dry/pink. 21:14 Reassessment: Patient and/or family updated on plan of care and expected duration. Pain ea level reassessed. Patient is alert, oriented x 3, equal unlabored respirations, skin warm/dry/pink. Discharge instructions given to patient and family, both verbalized the understanding of instruction. Pt daughter awaiting to speak to doctor. Patient denies pain at this time. Vital Signs: 18:41 BP 164 / 56; Pulse 55; Resp 16; Pulse Ox 97% on R/A; Weight 73.94 kg (R); Height 5 ft. aj1 2 in. (157.48 cm) (R); Pain 0/10; 19:40 BP 157 / 62; Pulse 55; Resp 18; Pulse Ox 97% on R/A; ea 20:00 BP 157 / 66; Pulse 51; Resp 19; Pulse Ox 96% on R/A; ea 21:00 BP 157 / 53; Pulse 51; Resp 19; Pulse Ox 96% on R/A; ea 18:41 Body Mass Index 29.81 (73.94 kg, 157.48 cm) aj1 [place] Coma Score: 18:41 Eye Response: spontaneous(4). Verbal Response: oriented(5). Motor Response: obeys aj1 commands(6). Total: 15. 20:52 Eye Response: spontaneous(4). Verbal Response: oriented(5). Motor Response: obeys kb commands(6). Total: 15. Trauma Score (Adult): 18:41 Eye Response: spontaneous(1); Verbal Response: oriented(1); Motor Response: obeys aj1 commands(2); Systolic BP: > 89 mm Hg(4); Respiratory Rate: 10 to 29 per min(4); [place] Score: 15; Trauma Score: 12 ED Course: 18:22 Patient arrived in ED. aj1 18:23 Delam Huitron FNP-C [facility]. kb 18:23 Johnny Blanco MD is Attending Physician. kb 18:23 Patient has correct armband on for positive identification. Bed in low position. Call aj1 light in reach. Side rails up X 1. 18:23 Patient maintains SpO2 saturation greater than 95% on room air. aj1 18:25 Triage completed. aj1 18:31 Arm band placed on. aj1 18:33 CT Head C Spine In Process Unspecified. EDMS 18:34 Jasmina Littlejohn, RN is Primary Nurse. ph 19:33 Thermoregulation: warm blanket given to patient. ph 21:26 No provider procedures requiring assistance completed. IV discontinued, intact, ea bleeding controlled, No redness/swelling at site. Pressure dressing applied. Administered Medications: No medications were administered Intake: 19:32 PO: 0ml; Total: 0ml. ph Output: 19:32 Urine: 200ml (Voided); Total: 200ml. ph Outcome: 20:53 Discharge ordered by . kb 21:32 Condition: improved ea 21:32 Patient's length of stay was not longer than 2 hours. 21:34 Discharge instructions given to patient, family, Instructed on discharge instructions, ea follow up and referral plans. Demonstrated understanding of instructions, follow-up care. 22:19 Discharged to home via wheelchair, with family. ea 22:20 Patient left the ED. ea Signatures: Dispatcher [employer] EDDelma Garza, NAIDA-C NAIDA-Shell Campbell RN RN aj1 Jasmina Littlejohn RN RN Amaya Webb RN RN ea
== END 2018-11-23 22:20 | disposition home or self-care (01) ==
LOC: ER 18:05
PROC: 0JQ00ZZ Repair Scalp Subcutaneous Tissue and Fascia, Open Approach (ICD-10-PCS; principal; 2018-11-23)
DX: S01.01XA Laceration without foreign body of scalp, initial encounter (principal); W01.0XXA Fall on same level from slipping, tripping and stumbling without subsequent striking against object, initial encounter; Y93.89 Activity, other specified; Y92.89 Other specified places as the place of occurrence of the external cause; Z79.4 Long term (current) use of insulin; Z88.0 Allergy status to penicillin; Z88.1 Allergy status to other antibiotic agents; Z88.5 Allergy status to narcotic agent; Z88.8 Allergy status to other drugs, medicaments and biological substances; I10 Essential (primary) hypertension; E11.9 Type 2 diabetes mellitus without complications
CPT/HCPCS: 70450; 72125; 99284

== ENCOUNTER 2020-04-29 10:11 | Emergency (ER) | payer OTHER ==
[2020-04-29 11:53] LABS: Absolute Lymphocytes (CBC) 2.5 K/uL (0.7-4.9); Basophils % 1.3 % (0-1.3); Hematocrit 39.1 % (36.0-45.0); Lymphocytes % 30.7 % (15.3-44.8); MPV 8.4 fL (7.6-11.3); RBC Red Blood Cell Count 4.49 M/uL (3.86-4.86)
--- NOTE | 2020-04-29 11:53 | RAD REPORT ---
EXAM DESCRIPTION: RAD - Chest Single View - 04/29/2020 11:48 am CLINICAL HISTORY: CHEST PAIN Chest pain. COMPARISON: Chest Pa And Lat (2 Views) dated 12/06/2019; Chest Single View dated 05/29/2018; Chest Sin gle View dated 03/28/2016; CHEST SINGLE VIEW dated 06/11/2015 FINDINGS: Portable technique limits examination quality. The lungs are grossly clear. The heart is mildly enlarged. No displaced fractures.Right humeral prost hesis. IMPRESSION: No acute intrathoracic process suspected.
[2020-04-29 12:09] LABS: Albumin 3.8 g/dL (3.4-5.0); Bilirubin Direct 0.2 mg/dL (0-0.2); Bilirubin Total 0.4 mg/dL (0.2-1.0); Magnesium 1.8 mg/dL (1.8-2.4); Potassium 4.6 mmol/L (3.5-5.1); Protein, Total 7.5 g/dL (6.4-8.2); Troponin (Emerg Dept Use Only) 0.02 ng/mL (0.0-0.045)
--- NOTE | 2020-04-29 12:09 | EKG ---
Test Date: 2020-04-29 Test Time: 10:33:20 Traffic Circuit Engineer: ANNA MEASUREMENT RESULTS: Intervals: Rate: 61 KS: 170 QRSD: 88 QT: 442 QTc: 444 [place]: P: 62 KS: 170 QRS: -8 T: 113 INTERPRETIVE STATEMENTS: Normal sinus rhythm Left ventricular hypertrophy with repolarization abnormality Abnormal ECG Compared to ECG 05/30/2018 08:18:02 Myocardial infarct finding no longer present Electronically Signed On 04-29-20 12:09:15 CDT by Kenneth Lugo
[2020-04-29] MEDS ORDERED: ONDANSETRON 4 MG/2 ML VIAL ONE ×2 (12:46→16:25)
[2020-04-29] MEDS ORDERED: MORPHINE 2 MG/ML SYR ONE ×2 (12:46→16:25)
--- NOTE | 2020-04-29 12:47 | EDPHYS ---
Physician Documentation [facility] Name: Leslie Cedeño Age: 84 yrs Sex: Female : 1935 Arrival Date: 04/29/2020 Time: 10:18 Bed 23 Private MD: Kalen Tiwari R ED Physician Davidson Cisneros HPI: 04/29 12:39 This 84 yrs old Female presents to ER via Wheelchair with complaints of rj Shoulder Pain, Arm Pain. 12:41 The patient or guardian complains of pain. right shoulder, right trapezius, right rj sternocleidomastoid, left shoulder, left trapezius and left sternocleidomastoid. Context: The problem was sustained at home, The patient reports no decreased range of motion. Onset: The symptoms/episode began/occurred just prior to arrival, this morning. Modifying factors: the symptoms are alleviated by nothing. The symptoms are aggravated by nothing. Associated signs and symptoms: The patient has no apparent associated signs or symptoms. The patient or guardian reports chest pain that is located primarily in the chest diffusely. Onset: this morning. The patient presents with pain that is acute. Historical: - Allergies: 10:33 Demerol; dm5 10:33 Keflex; dm5 10:33 Levaquin; dm5 10:33 PENICILLINS; dm5 10:33 Trulicity; dm5 - PMHx: 10:33 Diabetes - IDDM; heart problems; Hypertension; dm5 - PSHx: 10:33 Heart stents; dm5 - Immunization history:: Adult Immunizations up to date. - Social history:: Smoking status: Patient denies any tobacco usage or history of. - Family history:: not pertinent. ROS: 12:41 Constitutional: Negative for fever, chills, and weight loss, Eyes: Negative for injury, rj pain, redness, and discharge, ENT: Negative for injury, pain, and discharge, Neck: Negative for injury, pain, and swelling, Respiratory: Negative for shortness of breath, cough, wheezing, and pleuritic chest pain, Abdomen/GI: Negative for abdominal pain, nausea, vomiting, diarrhea, and constipation, : Negative for injury, bleeding, discharge, and swelling, MS/Extremity: Negative for injury and deformity, Skin: Negative for injury, rash, and discoloration, Neuro: Negative for headache, weakness, numbness, tingling, and seizure, Psych: Negative for depression, anxiety, suicide ideation, homicidal ideation, and hallucinations, Allergy/Immunology: Negative for hives, rash, and allergies, Endocrine: Negative for neck swelling, polydipsia, polyuria, polyphagia, and marked weight changes, Hematologic/Lymphatic: Negative for swollen nodes, abnormal bleeding, and unusual bruising. 12:41 Cardiovascular: Positive for chest pain. 12:41 Back: Positive for pain at rest. Exam: 12:43 Constitutional: This is a well developed, well nourished patient who is awake, alert, rj and in no acute distress. Head/Face: Normocephalic, atraumatic. Eyes: Pupils equal round and reactive to light, extra-ocular motions intact. Lids and lashes normal. Conjunctiva and sclera are non-icteric and not injected. Cornea within normal limits. Periorbital areas with no swelling, redness, or edema. ENT: Nares patent. No nasal discharge, no septal abnormalities noted. Tympanic membranes are normal and external auditory canals are clear. Oropharynx with no redness, swelling, or masses, exudates, or evidence of obstruction, uvula midline. Mucous membranes moist. Neck: Trachea midline, no thyromegaly or masses palpated, and no cervical lymphadenopathy. Supple, full range of motion without nuchal rigidity, or vertebral point tenderness. No Meningismus. Chest/axilla: Normal chest wall appearance and motion. Nontender with no deformity. No lesions are appreciated. Cardiovascular: Regular rate and rhythm with a normal S1 and S2. No gallops, murmurs, or rubs. Normal PMI, no JVD. No pulse deficits. Respiratory: Lungs have equal breath sounds bilaterally, clear to auscultation and percussion. No rales, rhonchi or wheezes noted. No increased work of breathing, no retractions or nasal flaring. Abdomen/GI: Soft, non-tender, with normal bowel sounds. No distension or tympany. No guarding or rebound. No evidence of tenderness throughout. Back: No spinal tenderness. No costovertebral tenderness. Full range of motion. Skin: Warm, dry with normal turgor. Normal color with no rashes, no lesions, and no evidence of cellulitis. MS/ Extremity: Pulses equal, no cyanosis. Neurovascular intact. Full, normal range of motion. Neuro: Awake and alert, GCS 15, oriented to person, place, time, and situation. Cranial nerves II-XII grossly intact. Motor strength 5/5 in all extremities. Sensory grossly intact. Cerebellar exam normal. Normal gait. Psych: Awake, alert, with orientation to person, place and time. Behavior, mood, and affect are within normal limits. 12:43 Skin: Appearance: Color: normal in color, Temperature: normal temperature, Moisture: normal moisture, petechiae, not noted, ecchymosis, not noted. 12:48 ECG was reviewed by the Attending Physician. [facility] Vital Signs: 10:27 BP 172 / 56; Pulse 60; Resp 20; Temp 97.9(O); Pulse Ox 96% on R/A; Weight 72.57 kg; dm5 Height 5 ft. 2 in. (157.48 cm); Pain 7/10; 11:45 BP 178 / 66; Pulse 61; Resp 17; Pulse Ox 97% ; ah 13:00 BP 148 / 58 RA; ah 13:05 BP 194 / 54 LA; Pulse 62; Resp 17; Pulse Ox 96% on R/A; ah 14:00 BP 133 / 45; Pulse 59; Resp 19; Pulse Ox 95% ; ah 14:45 BP 173 / 55; Pulse 68; Resp 18; Pulse Ox 97% ; ah 15:45 BP 128 / 70; Pulse 66; Resp 24; Pulse Ox 98% ; ah 10:27 Body Mass Index 29.26 (72.57 kg, 157.48 cm) dm5 MDM: 10:56 Patient medically screened. [facility] 12:45 Data reviewed: vital signs, nurses notes, lab test result(s), EKG, radiologic studies, [facility] plain films. 04/29 10:57 Order name: Basic Metabolic Panel; Complete Time: 12:25 [facility] 04/29 10:57 Order name: CBC with Diff; Complete Time: 12:25 [facility] 04/29 10:57 Order name: LFT's; Complete Time: 12:25 [facility] 04/29 10:57 Order name: Magnesium; Complete Time: 12:25 [facility] 04/29 10:57 Order name: NT PRO-BNP; Complete Time: 12:25 [facility] 04/29 10:57 Order name: Troponin (emerg Dept Use Only); Complete Time: 12:25 [facility] 04/29 10:57 Order name: XRAY Chest (1 view); Complete Time: 12:25 [facility] 04/29 15:46 Order name: Urine Culture [facility] 04/29 15:47 Order name: Urine Culture [facility] 04/29 15:51 Order name: Urine Dipstick--Ancillary (enter results) em1 04/29 10:57 Order name: EKG; Complete Time: 10:58 [facility] 04/29 10:57 Order name: Cardiac monitoring; Complete Time: 11:43 [facility] 04/29 10:57 Order name: EKG - Nurse/Tech; Complete Time: 11:43 [facility] 04/29 10:57 Order name: IV Saline Lock; Complete Time: 11:43 [facility] 04/29 10:57 Order name: Labs collected and sent; Complete Time: 11:43 [facility] 04/29 10:57 Order name: O2 Per Protocol; Complete Time: 11:43 [facility] 04/29 10:57 Order name: O2 Sat Monitoring; Complete Time: 11:43 [facility] 04/29 10:57 Order name: Urine Dipstick-Ancillary (obtain specimen); Complete Time: 15:50 [facility] 04/29 12:38 Order name: Bilateral blood pressure; Complete Time: 13:05 [facility] 04/29 13:08 Order name: Diet Heart Healthy: no rubio pepper or cilantro; Complete Time: 13:09 EC:48 Rate is 61 beats/min. Rhythm is regular. QRS [place] is Normal. [place] interval is normal. QRS rj interval is normal. QT interval is normal. No Q waves. T waves are Normal. No ST changes noted. Clinical impression: NSR w/ Non-specific ST/T Changes and No evidence of ischemia. Interpreted by me. Reviewed by me. Administered Medications: 12:45 Drug: Zofran (Ondansetron) 4 mg Route: IVP; Site: left forearm; 15:25 Follow up: Response: No adverse reaction 12:49 Drug: morphine 2 mg Route: IVP; Site: left forearm; 15:25 Follow up: Response: No adverse reaction; Pain is decreased 13:00 Drug: Lovenox 1 mg/kg Route: Sub-Q; Site: right lower abdomen; 15:25 Follow up: Response: No adverse reaction 16:35 Follow up: Response: No adverse reaction 16:15 Drug: Zofran (Ondansetron) 4 mg Route: IVP; Site: left forearm; 16:34 Follow up: Response: Medication administered at discharge. 16:20 Drug: morphine 2 mg Route: IVP; Site: left forearm; 16:34 Follow up: Response: Medication administered at discharge. Disposition: 04/29/20 12:46 Transfer ordered to [facility]. Diagnosis are Chest pain, unspecified, Essential (primary) hypertension, Unspecified kidney failure - chronic, Urinary tract infection, site not specified. - Reason for transfer: Higher level of care. - Accepting physician is to nory ahumada. - Condition is Stable. - Problem is new. - Symptoms have improved. Signatures: Dispatcher [employer] Ava Garcia, RN RN Davidson Kyle MD MD cha Harris, Amy, RN RN Corrections: (The following items were deleted from the chart) 12:47 12:46 04/29/2020 12:46 Transfer ordered to [facility]. Diagnosis is Chest pain, rj unspecified. Reason for transfer: Higher level of care. Accepting physician is to nory ahumada. Condition is Stable. Problem is new. Symptoms have improved. rj 15:48 12:47 04/29/2020 12:46 Transfer ordered to [facility]. Diagnosis is Chest pain, rj unspecified; Essential (primary) hypertension. Reason for transfer: Higher level of care. Accepting physician is to nory ahumada. Condition is Stable. Problem is new. Symptoms have improved. rj 16:36 15:48 04/29/2020 12:46 Transfer ordered to [facility]. Diagnosis is Chest pain, ah unspecified; Essential (primary) hypertension; Unspecified kidney failure - chronic; Urinary tract infection, site not specified. Reason for transfer: Higher level of care. Accepting physician is to nory ahumada. Condition is Stable. Problem is new. Symptoms have improved. rj
--- NOTE | 2020-04-29 12:47 | ER ---
Nurse's Notes [facility] Name: Leslie Cedeño Age: 84 yrs Sex: Female : 1935 Arrival Date: 04/29/2020 Time: 10:18 Bed 23 Private MD: Kalen Tiwari R Diagnosis: Chest pain, unspecified;Essential (primary) hypertension;Unspecified kidney failure-chronic;Urinary tract infection, site not specified Presentation: 04/29 10:27 Chief complaint: Patient states: pain in left arm started Tuesday. Spoke with Dr. nadiya Tiwari yesterday that advised pt to take a nitro to see if pain decreased as pain is similar to pain pt has felt in the past related to heart issues. pain decreased. pt last took nitro at 0430 today. Pt has history of 9 heart stents. Coronavirus screen: Patient denies a cough. Patient denies shortness of breath or difficulty breathing. Patient reports a measured and/or subjective temperature greater than 100.4F. Patient denies travel on a cruise ship or to a country the [facility] currently lists as an affected area. Patient denies contact with known and/or suspected case of COVID-19. Ebola Screen: Patient negative for fever greater than or equal to 101.5 degrees Fahrenheit, and additional compatible Ebola Virus Disease symptoms Patient denies exposure to infectious person. Patient denies travel to an Ebola-affected area in the 21 days before illness onset. No symptoms or risks identified at this time. Initial Sepsis Screen: Does the patient meet any 2 criteria? No. Patient's initial sepsis screen is negative. Does the patient have a suspected source of infection? No. Patient's initial sepsis screen is negative. Risk Assessment: Do you want to hurt yourself or someone else? Patient reports no desire to harm self or others. Onset of symptoms was April 25, 2020. 10:27 Method Of Arrival: Wheelchair dm5 10:27 Acuity: ETIENNE 2 dm5 Historical: - Allergies: 10:33 Demerol; dm5 10:33 Keflex; dm5 10:33 Levaquin; dm5 10:33 PENICILLINS; dm5 10:33 Trulicity; dm5 - PMHx: 10:33 Diabetes - IDDM; heart problems; Hypertension; dm5 - PSHx: 10:33 Heart stents; dm5 - Immunization history:: Adult Immunizations up to date. - Social history:: Smoking status: Patient denies any tobacco usage or history of. - Family history:: not pertinent. Screenin:52 Abuse screen: Denies threats or abuse. Nutritional screening: No deficits noted. dm5 Tuberculosis screening: No symptoms or risk factors identified. Fall Risk None identified. Assessment: 10:50 General: Appears in no apparent distress. uncomfortable, Behavior is calm, cooperative. dm5 Pain: Complains of pain in left trapezius and left scapular area Pain radiates to left supraclavicular area and left clavicle Pain currently is 7 out of 10 on a pain scale. Quality of pain is described as aching, Pain began 2-3 days ago. Neuro: Level of Consciousness is awake, alert, obeys commands, Oriented to person, place, time, situation. Cardiovascular: Heart tones S1 S2 present Capillary refill < 3 seconds Patient's skin is warm and dry. Respiratory: Airway is patent Respiratory effort is even, unlabored. Derm: Skin is intact, is healthy with good turgor, Skin is dry. 15:30 Reassessment: Report called to Gilles BALDWIN, at [facility]. 16:32 Reassessment: [facility] given report and transferred Pt. Vital Signs: 10:27 BP 172 / 56; Pulse 60; Resp 20; Temp 97.9(O); Pulse Ox 96% on R/A; Weight 72.57 kg; dm5 Height 5 ft. 2 in. (157.48 cm); Pain 7/10; 11:45 BP 178 / 66; Pulse 61; Resp 17; Pulse Ox 97% ; ah 13:00 BP 148 / 58 RA; ah 13:05 BP 194 / 54 LA; Pulse 62; Resp 17; Pulse Ox 96% on R/A; ah 14:00 BP 133 / 45; Pulse 59; Resp 19; Pulse Ox 95% ; ah 14:45 BP 173 / 55; Pulse 68; Resp 18; Pulse Ox 97% ; ah 15:45 BP 128 / 70; Pulse 66; Resp 24; Pulse Ox 98% ; ah 10:27 Body Mass Index 29.26 (72.57 kg, 157.48 cm) dm5 ED Course: 10:18 Patient arrived in ED. mr 10:18 Kalen Tiwari MD is Private Physician. mr 10:31 Triage completed. dm5 10:45 Inserted saline lock: 22 gauge in left wrist, using aseptic technique. 10:50 Ava Villegas, NICOLASA is Primary Nurse. dm5 10:52 Patient has correct armband on for positive identification. Placed in gown. Bed in low dm5 position. Call light in reach. Side rails up X2. cardiac monitor on. Pulse ox on. NIBP on. 10:52 Arm band placed on right wrist. dm5 10:56 Davidson Cisneros MD is Attending Physician. [facility] 11:48 XRAY Chest (1 view) In Process Unspecified. EDMS 16:33 No provider procedures requiring assistance completed. ah 16:36 Patient transferred, IV remains in place. Administered Medications: 12:45 Drug: Zofran (Ondansetron) 4 mg Route: IVP; Site: left forearm; 15:25 Follow up: Response: No adverse reaction ah 12:49 Drug: morphine 2 mg Route: IVP; Site: left forearm; ah 15:25 Follow up: Response: No adverse reaction; Pain is decreased 13:00 Drug: Lovenox 1 mg/kg Route: Sub-Q; Site: right lower abdomen; ah 15:25 Follow up: Response: No adverse reaction ah 16:35 Follow up: Response: No adverse reaction 16:15 Drug: Zofran (Ondansetron) 4 mg Route: IVP; Site: left forearm; 16:34 Follow up: Response: Medication administered at discharge. 16:20 Drug: morphine 2 mg Route: IVP; Site: left forearm; 16:34 Follow up: Response: Medication administered at discharge. Outcome: 12:46 ER care complete, transfer ordered by . [facility] 16:35 Transferred by ground EMS to [facility], Transfer form completed. 16:35 Condition: stable 16:35 Instructed on the need for transfer. 16:36 Patient left the ED. Addendum: 05/02/2020 07:34 Addendum: Culture Results: Positive urine culture. Phone call Attempt #1 FAXED to lilian Herrmann. ATTRommel Glez. Signatures: Dispatcher [employer] EDIA Ava Villegas, NICOLASA RN 5 Davidson Cisneros MD MD cha Rivera, Mary mr Smirch, Shelby, RN RN Radha Munson RN RN Corrections: (The following items were deleted from the chart) 04/29 10:36 10:27 Initial Sepsis Screen: Does the patient meet any 2 criteria? No. Patient's dm5 initial sepsis screen is negative. Does the patient have a suspected source of infection? Yes: Other: unknown source of elevated temp dm5 10:36 10:27 BP 172 / 56; Pulse 60bpm; Resp 20bpm; Pulse Ox 96% RA; Temp 100.8F; 72.57 kg; dm5 Height 5 ft. 2 in.; BMI: 29.2; Pain 7/10; dm5 13:06 13:05 BP 194 / 54 L Arm; [facility]
[2020-04-29] MEDS ORDERED: ENOXAPARIN 80 MG/0.8 ML SQ ONE (13:03)
--- OUTSIDE RECORDS SUMMARY | 2020-04-29 14:07 | XMS REPORT | Clinical Summary ---
:1935 Author Organization [facility] [address] [place] [address] Care Team Providers Name Role Phone Unavailable Primary Care Provider Unavailable Allergies Active Allergy Reactions Severity Noted Date Comments Cephalexin Rash Low 06/11/2017 Levofloxacin Rash Low 06/11/2017 Penicillins Rash Low 06/11/2017 Medications Medication Sig Dispensed Refills Start Date End Date Status celecoxib (CELEBREX) Take 200 mg by mouth 0 Active 200 MG capsule 2 (two) times daily with breakfast and dinner. ALPRAZolam (XANAX) Take 0.25 mg by 0 Active 0.25 MG tablet mouth every 6 (six) hours as needed for Anxiety. isosorbide dinitrate Take 30 mg by mouth 0 Active (ISORDIL) 20 MG 2 (two) times daily. tablet pioglitazone (ACTOS) Take 15 mg by mouth 0 Active 15 MG tablet daily. traMADol-acetaminoph Take 1-2 tablets by 0 Active en (ULTRACET) mouth every 6 (six) 37.5-325 mg per hours as needed for tablet Pain. pantoprazole Take 40 mg by mouth 0 Active (PROTONIX) 40 MG daily. tablet simvastatin (ZOCOR) Take 20 mg by mouth 0 Active 20 MG tablet nightly. ezetimibe (ZETIA) 10 Take 10 mg by mouth 0 Active mg tablet daily. metoprolol Take 50 mg by mouth 0 Active (LOPRESSOR) 50 MG 2 (two) times daily. tablet ondansetron (ZOFRAN) Take 4 mg by mouth 0 Active 4 MG tablet every 8 (eight) hours as needed for Nausea. levothyroxine Take 125 mcg by 0 Active (SYNTHROID, mouth Every morning LEVOTHROID) 125 MCG on an empty stomach. tablet fenofibrate Take 160 mg by mouth 0 Active (TRIGLIDE,LOFIBRA) daily. 160 MG tablet clopidogrel (PLAVIX) Take 75 mg by mouth 0 Active 75 mg tablet daily. PARoxetine (PAXIL) Take 20 mg by mouth 0 Active 20 MG tablet every morning. aspirin 325 MG Take 325 mg by mouth 0 Active tablet daily. docusate sodium Take by mouth 2 0 Active (COLACE) 50 MG (two) times daily as capsule needed for Constipation. niacin 500 MG tablet Take 500 mg by mouth 0 Active daily with breakfast. lactobacillus Take 1 capsule by 0 Active rhamnosus, GG, mouth daily. (CULTURELLE) 10 billion cell capsule insulin glargine Inject 40 Units 0 Active (LANTUS) 100 unit/mL subcutaneously 2 injection (two) times daily Use as directed . furosemide (LASIX) Take 0.5 tablets (20 0 06/14/2017 Active 40 MG tablet mg total) by mouth daily. Active Problems Problem Noted Date Diverticulitis [...] Not on file Results Not on fileafter 04/29/2019 Insurance Payer Benefit Plan / Group Subscriber ID Type Phone A ddress MEDICARE MEDICARE A B xxxxxxxxxx Medicare [employer] - MGD CARE [employer] INDEMNITY NON CONTR xxxxxxxxx Comm
--- OUTSIDE RECORDS SUMMARY | 2020-04-29 14:08 | XMS REPORT | Continuity of Care Document ---
:1935 Author Organization [facility] t Address [facility] [address] [place] [address] Care Team Providers Name Role Phone ALBERTO ALBERTS Attending Clinician Unavailable ALBERTO ALBERTS Admitting Clinician Unavailable Problems Condition Condition Condition Status Onset Resolution Last Treating Co mments Source Name Details Category Date Date Treatment Clinician Date Diverticul Diverticul Disease Active [facility] Allergies, Adverse Reactions, Alerts Allergy Allergy Status Severity Reaction(s) Onset Inactive Treating Comm ents Source Name Type Date Date Clinician Cephalex Drug Active Rash [facility] Levoflox Drug Active Rash [facility] - [facility] Center Penicill Drug Active Rash [facility] - [facility] Family History Family Member Diagnosis Comments Start Date Stop Date Source Natural brother No Known Problem [facility] Natural daughter No Known Problem [facility] Natural father No Known Problem [facility] Maternal aunt No Known Problem [facility] Maternal grandfather No Known Problem [facility] Maternal grandmother No Known Problem [facility] Maternal uncle No Known Problem [facility] Natural mother No Known Problem [facility] Paternal aunt No Known Problem [facility] Paternal grandfather No Known Problem [facility] Paternal grandmother No Known Problem [facility] Paternal uncle No Known Problem [facility] Natural sister No Known Problem [facility] Natural son No Known Problem [facility] Social History Social Habit Start Date Stop Date Quantity Comments Source Sex Assigned At [facility] Smoking Status Start Date Stop Date Source Never smoker [facility] Medications Ordered Filled Start Stop Current Ordering Indication Dosage Frequency Signature Comments Components Source Medication Medication Date Date Medication? Clinician (SIG) Name Name furosemide Yes 20mg QD Take 0.[address] [facility] (LASIX) 40 8-29 tablets [facility] MG tablet 00:00: (20 mg Medica l 00 total) by Center mouth daily. insulin Yes 40U Q.5D Inject 40 [facility] glargine 8-26 Units [facility] - (LANTUS) 12:24: subcutaneo Med ical 100 unit/mL 29 usly 2 Center injection (two) times daily Use as directed . docusate Yes [address] [facility] sodium 8-26 mouth 2 [facility] - (COLACE) 50 01:04: (two) Medic al MG capsule 13 times Center daily as needed for Constipati on. niacin 500 Yes 500mg Take [address] MG tablet 8-26 mg by [facility] - 01:04: mouth Medical 13 daily with Center breakfast. lactobacill Yes 1{capsu QD Take [address] us 8-26 le} capsule by [facility] - rhamnosus, 01:04: mouth Medica l GG, 13 daily. [place] (CULTURELL ) 10 billion cell capsule ezetimibe Yes 10mg QD Take [address] (ZETIA) 10 8-26 by mouth [facility] - mg tablet 01:04: daily. Medica l 12 Center metoprolol Yes 50mg Q.5D Take [address] (LOPRESSOR) 8-26 by mouth 2 [facility] - 50 MG 01:04: (two) Medical tablet 12 times Center daily. ondansetron Yes 4mg Take [address] (ZOFRAN) 4 8-26 by mouth [facility] MG tablet 01:04: every 8 Medic al 12 (eight) Center hours as needed for Nausea. levothyroxi Yes 125ug Take [address] ne 8-26 mcg by [facility] - (SYNTHROID, 01:04: mouth Medic al LEVOTHROID) 12 Every Center 125 MCG morning on tablet an empty stomach. fenofibrate Yes 160mg QD Take [address] (TRIGLIDE,L 8-26 mg by [facility] - OFIBRA) 160 01:04: mouth Medic al MG tablet 12 daily. [place] clopidogrel Yes 75mg QD Take [address] [facility] (PLAVIX) 75 8-26 by mouth [facility] - mg tablet 01:04: daily. Medica l 12 Center PARoxetine Yes 20mg QD Take [address] (PAXIL) 20 8-26 by mouth [facility] - MG tablet 01:04: every Medical 12 morning. [place] aspirin 325 Yes 325mg QD Take [address] MG tablet 8-26 mg by [facility] - 01:04: mouth Medical 12 daily. [place] ALPRAZolam Yes .25mg Take 0.[address] (XANAX) 8-26 mg by [facility] - 0.25 MG 01:04: mouth Medical tablet 11 every 6 Center (six) hours as needed for Anxiety. isosorbide Yes 30mg Q.5D Take [address] dinitrate 8-26 by mouth 2 [facility] - (ISORDIL) 01:04: (two) Medical 20 MG 11 times Center tablet daily. pioglitazon Yes 15mg QD Take [address] (ACTOS) 8-26 by mouth [facility] - 15 MG 01:04: daily. Medical tablet 11 [place] traMADol-ac Yes 1{tbl} Take 1-[address] [address] etaminophen 8-26 tablets by [facility] - (ULTRACET) 01:04: mouth Medica l 37.5-325 mg 11 every 6 Cente r per tablet (six) hours as needed for Pain. pantoprazol Yes 40mg QD Take [address] e 8-26 by mouth [facility] - (PROTONIX) 01:04: daily. Medic al 40 MG 11 Center tablet simvastatin Yes 20mg QD Take [address] (ZOCOR) 20 8-26 by mouth [facility] - MG tablet 01:04: nightly. Medi slava 11 [place] celecoxib Yes 200mg Take [address] (CELEBREX) 8-26 mg by [facility] - 200 MG 01:04: mouth 2 Medical capsule 10 (two) Center times daily with breakfast and dinner. Procedures This patient has no known procedures. Results Test Description Test Time Test Comments Results Result Comments Source POCT-GLUCOSE METER 2017-06-14 16:21:00 Test Item Value Reference Range Interpretation Comme nts POC-GLUCOSE METER (BEAKER) (test 315 mg/dL 70-[address] [place] [address] [address] [facility] code = 1538) [facility] [address] POCT-GLUCOSE [id number] 11:57:00 Test Item Value Reference Range Interpretation Comments POC-GLUCOSE METER 224 mg/dL 70-110 H TESTED AT [facility] [address] (BEAKER) (test code [facility] = 1538) [place] [address] POCT-GLUCOSE [id number] 06:03:00 Test Item Value Reference Range Interpretation Comments POC-GLUCOSE METER 118 mg/dL 70-110 H TESTED AT [facility] [address] (BEAKER) (test code [facility] = 1538) [place] [address] COMPREHENSIVE METABOLIC [id number] 04:28:00 Test Item Value Reference Range Interpretation Comments TOTAL PROTEIN 6.1 gm/dL 6.0-8.5 (BEAKER) (test code = 770) ALBUMIN (BEAKER) 3.4 g/dL 3.5-5.0 L (test code = 1145) ALKALINE PHOSPHATASE 55 U/L 30-115 (BEAKER) (test code = 346) BILIRUBIN TOTAL 0.3 mg/dL 0.1-1.3 (BEAKER) (test code = 377) SODIUM (BEAKER) 140 meq/L 135-148 (test code = 381) POTASSIUM (BEAKER) 4.4 meq/L 3.5-5.5 (test code = 379) CHLORIDE (BEAKER) 107 meq/L 98-106 H (test code = 382) CO2 (BEAKER) (test 23 meq/L 20-31 code = 355) BLOOD UREA NITROGEN 30 mg/dL 10-26 H (BEAKER) (test code = 354) CREATININE (BEAKER) 2.27 mg/dL 0.50-1.20 H (test code = 358) GLUCOSE RANDOM 122 mg/dL 70-110 H (BEAKER) (test code = 652) CALCIUM (BEAKER) 9.3 mg/dL 8.5-10.5 (test code = 697) AST (SGOT) (BEAKER) 19 U/L 5-40 (test code = 353) ALT (SGPT) (BEAKER) 12 U/L 6-50 (test code = 347) EGFR (BEAKER) (test mL/min/1.73 INSUFFIC IENT code = 1092) sq m CLINICAL DATA T O CALCULATE ESTIM ATED GFR. CBC W/PLT COUNT & AUTO [id number] 03:44:00 Test Item Value Reference Range Interpretation Comments WHITE BLOOD CELL COUNT (BEAKER) 9.4 K/ L 4.0-10.0 (test code = 775) RED BLOOD CELL COUNT (BEAKER) 3.84 M/ L 4.00-5.00 L (test code = 761) HEMOGLOBIN (BEAKER) (test code = 11.3 GM/DL 12.0-15.0 L 410) HEMATOCRIT (BEAKER) (test code = 34.4 % 36.0-45.0 L 411) MEAN CORPUSCULAR VOLUME (BEAKER) 89.6 fL 82.0-99.0 (test code = 753) MEAN CORPUSCULAR HEMOGLOBIN 29.3 pg 27.0-33.0 (BEAKER) (test code = 751) MEAN CORPUSCULAR HEMOGLOBIN CONC 32.7 GM/DL 32.0-36.0 (BEAKER) (test code = 752) RED CELL DISTRIBUTION WIDTH 14.4 % 12.0-15.0 (BEAKER) (test code = 412) PLATELET COUNT (BEAKER) (test 279 K/CU MM 150-430 code = 756) MEAN PLATELET VOLUME (BEAKER) 8.1 fL 6.5-10.5 (test code = 754) NUCLEATED RED BLOOD CELLS 0 /100 WBC 0-0 (BEAKER) (test code = 413) NEUTROPHILS RELATIVE PERCENT 57 % (BEAKER) (test code = 429) LYMPHOCYTES RELATIVE PERCENT 30 % (BEAKER) (test code = 430) MONOCYTES RELATIVE PERCENT 6 % (BEAKER) (test code = 431) EOSINOPHILS RELATIVE PERCENT 7 % (BEAKER) (test code = 432) BASOPHILS RELATIVE PERCENT 1 % (BEAKER) (test code = 437) NEUTROPHILS ABSOLUTE COUNT 5.40 K/ L 1.80-8.00 (BEAKER) (test code = 670) LYMPHOCYTES ABSOLUTE COUNT 2.80 K/ L 1.48-4.50 (BEAKER) (test code = 414) MONOCYTES ABSOLUTE COUNT (BEAKER) 0.50 K/ L 0.00-1.30 (test code = 415) EOSINOPHILS ABSOLUTE COUNT 0.60 K/ L 0.00-0.50 H (BEAKER) (test code = 416) BASOPHILS ABSOLUTE COUNT (BEAKER) 0.10 K/ L 0.00-0.20 (test code = 417) POCT-GLUCOSE [id number] 20:46:00 Test Item Value Reference Range Interpretation Comments POC-GLUCOSE METER 262 mg/dL 70-110 H TESTED AT [facility] [address] ([facility]) (test code [facility] = 1538) [place] [address] POCT-GLUCOSE [id number] 18:01:00 Test Item Value Reference Range Interpretation Comments POC-GLUCOSE METER 305 mg/dL 70-110 H Notified R Rommel RAYGOZA/TESTED AT ([facility]) (test code [facility] [address] = 1538) [facility] [place] [address] POCT-GLUCOSE [id number] 11:41:00 Test Item Value Reference Range Interpretation Comments POC-GLUCOSE METER 331 mg/dL 70-110 H TESTED AT [facility] [address] ([facility]) (test code [facility] = 1538) [place] [address] COMPREHENSIVE METABOLIC [id number] 05:16:00 Test Item Value Reference Range Interpretation Comments TOTAL PROTEIN 6.3 gm/dL 6.0-8.5 (BEAKER) (test code = 770) ALBUMIN (BEAKER) 3.3 g/dL 3.5-5.0 L (test code = 1145) ALKALINE PHOSPHATASE 67 U/L 30-115 (BEAKER) (test code = 346) BILIRUBIN TOTAL 0.3 mg/dL 0.1-1.3 (BEAKER) (test code = 377) SODIUM (BEAKER) 137 meq/L 135-148 (test code = 381) POTASSIUM (BEAKER) 4.2 meq/L 3.5-5.5 (test code = 379) CHLORIDE (BEAKER) 105 meq/L 98-106 (test code = 382) CO2 (BEAKER) (test 22 meq/L 20-31 code = 355) BLOOD UREA NITROGEN 36 mg/dL 10-26 H (BEAKER) (test code = 354) CREATININE (BEAKER) 2.26 mg/dL 0.50-1.20 H (test code = 358) GLUCOSE RANDOM 241 mg/dL 70-110 H (BEAKER) (test code = 652) CALCIUM (BEAKER) 9.5 mg/dL 8.5-10.5 (test code = 697) AST (SGOT) (BEAKER) 18 U/L 5-40 (test code = 353) ALT (SGPT) (BEAKER) 11 U/L 6-50 (test code = 347) EGFR (BEAKER) (test mL/min/1.73 INSUFFIC IENT code = 1092) sq m CLINICAL DATA T O CALCULATE ESTIM ATED GFR. CBC W/PLT COUNT & AUTO [id number] 04:49:00 Test Item Value Reference Range Interpretation Comments WHITE BLOOD CELL COUNT (BEAKER) 9.3 K/ L 4.0-10.0 (test code = 775) RED BLOOD CELL COUNT (BEAKER) 3.89 M/ L 4.00-5.00 L (test code = 761) HEMOGLOBIN (BEAKER) (test code = 11.5 GM/DL 12.0-15.0 L 410) HEMATOCRIT (BEAKER) (test code = 34.9 % 36.0-45.0 L 411) MEAN CORPUSCULAR VOLUME (BEAKER) 89.7 fL 82.0-99.0 (test code = 753) MEAN CORPUSCULAR HEMOGLOBIN 29.4 pg 27.0-33.0 (BEAKER) (test code = 751) MEAN CORPUSCULAR HEMOGLOBIN CONC 32.8 GM/DL 32.0-36.0 (BEAKER) (test code = 752) RED CELL DISTRIBUTION WIDTH 14.2 % 12.0-15.0 (BEAKER) (test code = 412) PLATELET COUNT (BEAKER) (test 268 K/CU MM 150-430 code = 756) MEAN PLATELET VOLUME (BEAKER) 8.7 fL 6.5-10.5 (test code = 754) NUCLEATED RED BLOOD CELLS 0 /100 WBC 0-0 (BEAKER) (test code = 413) NEUTROPHILS RELATIVE PERCENT 59 % (BEAKER) (test code = 429) LYMPHOCYTES RELATIVE PERCENT 30 % (BEAKER) (test code = 430) MONOCYTES RELATIVE PERCENT 5 % (BEAKER) (test code = 431) EOSINOPHILS RELATIVE PERCENT 7 % (BEAKER) (test code = 432) BASOPHILS RELATIVE PERCENT 0 % (BEAKER) (test code = 437) NEUTROPHILS ABSOLUTE COUNT 5.50 K/ L 1.80-8.00 (BEAKER) (test code = 670) LYMPHOCYTES ABSOLUTE COUNT 2.70 K/ L 1.48-4.50 (BEAKER) (test code = 414) MONOCYTES ABSOLUTE COUNT (BEAKER) 0.50 K/ L 0.00-1.30 (test code = 415) EOSINOPHILS ABSOLUTE COUNT 0.60 K/ L 0.00-0.50 H (BEAKER) (test code = 416) BASOPHILS ABSOLUTE COUNT (BEAKER) 0.00 K/ L 0.00-0.20 (test code = 417) POCT-GLUCOSE [id number] 20:59:00 Test Item Value Reference Range Interpretation Comments POC-GLUCOSE METER 363 mg/dL 70-110 H Notified R Rommel RAYGOZA/TESTED AT ([facility]) (test code [facility] [address] [facility] = 1538) [facility] [place] [address] POCT-GLUCOSE [id number] 17:17:00 Test Item Value Reference Range Interpretation Comments POC-GLUCOSE METER 314 mg/dL 70-110 H TESTED AT [facility] [address] ([facility]) (test code [facility] = 1538) [place] [address] BASIC METABOLIC [id number] 12:14:00 Test Item Value Reference Range Interpretation Comments SODIUM (BEAKER) 134 meq/L 135-148 L (test code = 381) POTASSIUM (BEAKER) 4.7 meq/L 3.5-5.5 (test code = 379) CHLORIDE (BEAKER) 98 meq/L 98-106 (test code = 382) CO2 (BEAKER) (test 23 meq/L 20-31 code = 355) BLOOD UREA NITROGEN 35 mg/dL 10-26 H (BEAKER) (test code = 354) CREATININE (BEAKER) 2.34 mg/dL 0.50-1.20 H (test code = 358) GLUCOSE RANDOM 295 mg/dL 70-110 H (BEAKER) (test code = 652) CALCIUM (BEAKER) 10.0 mg/dL 8.5-10.5 (test code = 697) EGFR (BEAKER) (test mL/min/1.73 INSUFFIC IENT CLINICAL code = 1092) sq m DATA TO CALCULA TE ESTIMATED GFR. CBC W/PLT COUNT & AUTO [id number] 11:37:00 Test Item Value Reference Range Interpretation Comments WHITE BLOOD CELL COUNT (BEAKER) 10.1 K/ L 4.0-10.0 H (test code = 775) RED BLOOD CELL COUNT (BEAKER) 4.42 M/ L 4.00-5.00 (test code = 761) HEMOGLOBIN (BEAKER) (test code = 13.0 GM/DL 12.0-15.0 410) HEMATOCRIT (BEAKER) (test code = 39.6 % 36.0-45.0 411) MEAN CORPUSCULAR VOLUME (BEAKER) 89.5 fL 82.0-99.0 (test code = 753) MEAN CORPUSCULAR HEMOGLOBIN 29.4 pg 27.0-33.0 (BEAKER) (test code = 751) MEAN CORPUSCULAR HEMOGLOBIN CONC 32.8 GM/DL 32.0-36.0 (BEAKER) (test code = 752) RED CELL DISTRIBUTION WIDTH 14.3 % 12.0-15.0 (BEAKER) (test code = 412) PLATELET COUNT (BEAKER) (test 326 K/CU MM 150-430 code = 756) MEAN PLATELET VOLUME (BEAKER) 8.7 fL 6.5-10.5 (test code = 754) NUCLEATED RED BLOOD CELLS 0 /100 WBC 0-0 (BEAKER) (test code = 413) NEUTROPHILS RELATIVE PERCENT 60 % (BEAKER) (test code = 429) LYMPHOCYTES RELATIVE PERCENT 27 % (BEAKER) (test code = 430) MONOCYTES RELATIVE PERCENT 7 % (BEAKER) (test code = 431) EOSINOPHILS RELATIVE PERCENT 6 % (BEAKER) (test code = 432) BASOPHILS RELATIVE PERCENT 0 % (BEAKER) (test code = 437) NEUTROPHILS ABSOLUTE COUNT 6.10 K/ L 1.80-8.00 (BEAKER) (test code = 670) LYMPHOCYTES ABSOLUTE COUNT 2.70 K/ L 1.48-4.50 (BEAKER) (test code = 414) MONOCYTES ABSOLUTE COUNT (BEAKER) 0.70 K/ L 0.00-1.30 (test code = 415) EOSINOPHILS ABSOLUTE COUNT 0.60 K/ L 0.00-0.50 H (BEAKER) (test code = 416) BASOPHILS ABSOLUTE COUNT (BEAKER) 0.00 K/ L 0.00-0.20 (test code = 417) POCT-GLUCOSE [id number] 11:32:00 Test Item Value Reference Range Interpretation Comments POC-GLUCOSE METER 293 mg/dL 70-110 H TESTED AT [facility] [address] [address] (BEAKER) (test code [facility] = 1538) [place] [address] POCT-GLUCOSE [id number] 06:01:00 Test Item Value Reference Range Interpretation Comments POC-GLUCOSE METER 294 mg/dL 70-110 H TESTED AT [facility] [address] (BEAKER) (test code [facility] = 1538) [place] [address] BASIC METABOLIC [id number] 05:34:00 Test Item Value Reference Range Interpretation Comments SODIUM (BEAKER) 136 meq/L 135-148 (test code = 381) POTASSIUM (BEAKER) 4.1 meq/L 3.5-5.5 (test code = 379) CHLORIDE (BEAKER) 101 meq/L 98-106 (test code = 382) CO2 (BEAKER) (test 22 meq/L 20-31 code = 355) BLOOD UREA NITROGEN 34 mg/dL 10-26 H (BEAKER) (test code = 354) CREATININE (BEAKER) 2.42 mg/dL 0.50-1.20 H (test code = 358) GLUCOSE RANDOM 273 mg/dL 70-110 H (BEAKER) (test code = 652) CALCIUM (BEAKER) 9.7 mg/dL 8.5-10.5 (test code = 697) EGFR (BEAKER) (test mL/min/1.73 INSUFFIC IENT CLINICAL code = 1092) sq m DATA TO CALCULA TE ESTIMATED GFR. COMPREHENSIVE METABOLIC [id number] 05:34:00 Test Item Value Reference Range Interpretation Comments TOTAL PROTEIN 6.5 gm/dL 6.0-8.5 (BEAKER) (test code = 770) ALBUMIN (BEAKER) 3.6 g/dL 3.5-5.0 (test code = 1145) ALKALINE PHOSPHATASE 59 U/L 30-115 (BEAKER) (test code = 346) BILIRUBIN TOTAL 0.3 mg/dL 0.1-1.3 (BEAKER) (test code = 377) SODIUM (BEAKER) 136 meq/L 135-148 (test code = 381) POTASSIUM (BEAKER) 4.1 meq/L 3.5-5.5 (test code = 379) CHLORIDE (BEAKER) 101 meq/L 98-106 (test code = 382) CO2 (BEAKER) (test 22 meq/L 20-31 code = 355) BLOOD UREA NITROGEN 34 mg/dL 10-26 H (BEAKER) (test code = 354) CREATININE (BEAKER) 2.42 mg/dL 0.50-1.20 H (test code = 358) GLUCOSE RANDOM 273 mg/dL 70-110 H (BEAKER) (test code = 652) CALCIUM (BEAKER) 9.7 mg/dL 8.5-10.5 (test code = 697) AST (SGOT) (BEAKER) 13 U/L 5-40 (test code = 353) ALT (SGPT) (BEAKER) 10 U/L 6-50 (test code = 347) EGFR (BEAKER) (test mL/min/1.73 INSUFFIC IENT code = 1092) sq m CLINICAL DATA T O CALCULATE ESTIM ATED GFR. CBC W/PLT COUNT & AUTO [id number] 05:06:00 Test Item Value Reference Range Interpretation Comments WHITE BLOOD CELL COUNT (BEAKER) 9.2 K/ L 4.0-10.0 (test code = 775) RED BLOOD CELL COUNT (BEAKER) 4.08 M/ L 4.00-5.00 (test code = 761) HEMOGLOBIN (BEAKER) (test code = 12.1 GM/DL 12.0-15.0 410) HEMATOCRIT (BEAKER) (test code = 36.4 % 36.0-45.0 411) MEAN CORPUSCULAR VOLUME (BEAKER) 89.1 fL 82.0-99.0 (test code = 753) MEAN CORPUSCULAR HEMOGLOBIN 29.6 pg 27.0-33.0 (BEAKER) (test code = 751) MEAN CORPUSCULAR HEMOGLOBIN CONC 33.2 GM/DL 32.0-36.0 (BEAKER) (test code = 752) RED CELL DISTRIBUTION WIDTH 14.2 % 12.0-15.0 (BEAKER) (test code = 412) PLATELET COUNT (BEAKER) (test 278 K/CU MM 150-430 code = 756) MEAN PLATELET VOLUME (BEAKER) 8.5 fL 6.5-10.5 (test code = 754) NUCLEATED RED BLOOD CELLS 0 /100 WBC 0-0 (BEAKER) (test code = 413) NEUTROPHILS RELATIVE PERCENT 57 % (BEAKER) (test code = 429) LYMPHOCYTES RELATIVE PERCENT 30 % (BEAKER) (test code = 430) MONOCYTES RELATIVE PERCENT 6 % (BEAKER) (test code = 431) EOSINOPHILS RELATIVE PERCENT 6 % (BEAKER) (test code = 432) BASOPHILS RELATIVE PERCENT 1 % (BEAKER) (test code = 437) NEUTROPHILS ABSOLUTE COUNT 5.20 K/ L 1.80-8.00 (BEAKER) (test code = 670) LYMPHOCYTES ABSOLUTE COUNT 2.80 K/ L 1.48-4.50 (BEAKER) (test code = 414) MONOCYTES ABSOLUTE COUNT (BEAKER) 0.60 K/ L 0.00-1.30 (test code = 415) EOSINOPHILS ABSOLUTE COUNT 0.60 K/ L 0.00-0.50 H (BEAKER) (test code = 416) BASOPHILS ABSOLUTE COUNT (BEAKER) 0.10 K/ L 0.00-0.20 (test code = 417) POCT-GLUCOSE [id number] 21:27:00 Test Item Value Reference Range Interpretation Comments POC-GLUCOSE METER 366 mg/dL 70-110 H TESTED AT [facility] [address] ([facility]) (test code [facility] = 1538) [place] [address] POCT-GLUCOSE [id number] 20:16:00 Test Item Value Reference Range Interpretation Comments POC-GLUCOSE METER 329 mg/dL 70-110 H TESTED AT [facility] [address] ([facility]) (test code [facility] = 1538) [place] [address] POCT-GLUCOSE [id number] 11:50:00 Test Item Value Reference Range Interpretation Comments POC-GLUCOSE METER 360 mg/dL 70-110 H Notified R Rommel RAYGOZA/TESTED AT ([facility]) (test code [facility] [address] [facility] = 1538) [facility] X [address] SEDIMENTATION [id number] 09:08:00 Test Item Value Reference Range Interpretation Comments SEDIMENTATION RATE, ERYTHROCYTE 55 mm/HR 0-40 H (BEAKER) (test code = 766) COMPREHENSIVE METABOLIC [id number] 06:16:00 Test Item Value Reference Range Interpretation Comments TOTAL PROTEIN 7.6 gm/dL 6.0-8.5 (BEAKER) (test code = 770) ALBUMIN (BEAKER) 4.0 g/dL 3.5-5.0 (test code = 1145) ALKALINE PHOSPHATASE 70 U/L 30-115 (BEAKER) (test code = 346) BILIRUBIN TOTAL 0.4 mg/dL 0.1-1.3 (BEAKER) (test code = 377) SODIUM (BEAKER) 132 meq/L 135-148 L (test code = 381) POTASSIUM (BEAKER) 4.1 meq/L 3.5-5.5 (test code = 379) CHLORIDE (BEAKER) 99 meq/L 98-106 (test code = 382) CO2 (BEAKER) (test 21 meq/L 20-31 code = 355) BLOOD UREA NITROGEN 28 mg/dL 10-26 H (BEAKER) (test code = 354) CREATININE (BEAKER) 1.92 mg/dL 0.50-1.20 H (test code = 358) GLUCOSE RANDOM 380 mg/dL 70-110 H (BEAKER) (test code = 652) CALCIUM (BEAKER) 10.4 mg/dL 8.5-10.5 (test code = 697) AST (SGOT) (BEAKER) 15 U/L 5-40 (test code = 353) ALT (SGPT) (BEAKER) 10 U/L 6-50 (test code = 347) EGFR (BEAKER) (test mL/min/1.73 INSUFFIC IENT code = 1092) sq m CLINICAL DATA T O CALCULATE ESTIM ATED GFR. POCT-GLUCOSE [id number] 06:15:00 Test Item Value Reference Range Interpretation Comments POC-GLUCOSE METER 357 mg/dL 70-[place] [address] [address] ([facility]) (test code [facility] = 1538) [place] [address] CBC W/PLT COUNT & AUTO [id number] 05:42:00 Test Item Value Reference Range Interpretation Comments WHITE BLOOD CELL COUNT (BEAKER) 10.7 K/ L 4.0-10.0 H (test code = 775) RED BLOOD CELL COUNT (BEAKER) 4.57 M/ L 4.00-5.00 (test code = 761) HEMOGLOBIN (BEAKER) (test code = 13.5 GM/DL 12.0-15.0 410) HEMATOCRIT (BEAKER) (test code = 41.0 % 36.0-45.0 411) MEAN CORPUSCULAR VOLUME (BEAKER) 89.8 fL 82.0-99.0 (test code = 753) MEAN CORPUSCULAR HEMOGLOBIN 29.6 pg 27.0-33.0 (BEAKER) (test code = 751) MEAN CORPUSCULAR HEMOGLOBIN CONC 32.9 GM/DL 32.0-36.0 (BEAKER) (test code = 752) RED CELL DISTRIBUTION WIDTH 14.7 % 12.0-15.0 (BEAKER) (test code = 412) PLATELET COUNT (BEAKER) (test 270 K/CU MM 150-430 code = 756) MEAN PLATELET VOLUME (BEAKER) 8.4 fL 6.5-10.5 (test code = 754) NUCLEATED RED BLOOD CELLS 0 /100 WBC 0-0 (BEAKER) (test code = 413) NEUTROPHILS RELATIVE PERCENT 69 % (BEAKER) (test code = 429) LYMPHOCYTES RELATIVE PERCENT 22 % (BEAKER) (test code = 430) MONOCYTES RELATIVE PERCENT 5 % (BEAKER) (test code = 431) EOSINOPHILS RELATIVE PERCENT 3 % (BEAKER) (test code = 432) BASOPHILS RELATIVE PERCENT 1 % (BEAKER) (test code = 437) NEUTROPHILS ABSOLUTE COUNT 7.40 K/ L 1.80-8.00 (BEAKER) (test code = 670) LYMPHOCYTES ABSOLUTE COUNT 2.40 K/ L 1.48-4.50 (BEAKER) (test code = 414) MONOCYTES ABSOLUTE COUNT (BEAKER) 0.60 K/ L 0.00-1.30 (test code = 415) EOSINOPHILS ABSOLUTE COUNT 0.30 K/ L 0.00-0.50 (BEAKER) (test code = 416) BASOPHILS ABSOLUTE COUNT (BEAKER) 0.00 K/ L 0.00-0.20 (test code = 417)
[2020-04-29] MEDS ORDERED: SMZ./TMP. 800/160 MG TABLET ONE (15:58)
[2020-04-29 16:59] VITALS: TEMP 97.9
[2020-04-29 17:07] VITALS: BP 128/70; O2SAT 98
[2020-04-29 20:31] LABS: Urine Blood 2+ (NEG); Urine Glucose NEGATIVE (NEG); Urine Protein 2+ (NEG); Urine pH 5.5 (5.0-7.0)
== END 2020-04-29 16:36 | disposition short-term general hospital (02) ==
LOC: ER 10:11
DX: I10 Essential (primary) hypertension (principal); N39.0 Urinary tract infection, site not specified; E11.22 Type 2 diabetes mellitus with diabetic chronic kidney disease; I12.9 Hypertensive chronic kidney disease with stage 1 through stage 4 chronic kidney disease, or unspecified chronic kidney disease; N18.9 Chronic kidney disease, unspecified; Z95.818 Presence of other cardiac implants and grafts; Z88.0 Allergy status to penicillin; Z88.1 Allergy status to other antibiotic agents; Z88.5 Allergy status to narcotic agent; Z88.8 Allergy status to other drugs, medicaments and biological substances
CPT/HCPCS: 93005; 87088; 85025; 87086; 80048; 36415; 83735; 80076; 87077; 87186; 81003; 84484; 83880; 71045; 96375; 96372; 96374; 99285; J2270 ×2; J2405 ×2

== ENCOUNTER 2021-07-26 10:00 | Emergency (ER) | payer OTHER ==
[2021-07-26 10:50] LABS: Absolute Lymphocytes (CBC) 1.2 K/uL (0.7-4.9); Basophils % 2.5 % (0-1.3); Hematocrit 29.4 % (36.0-45.0); Lymphocytes % 13.3 % (15.3-44.8); MPV 8.7 fL (7.6-11.3); RBC Red Blood Cell Count 3.54 M/uL (3.86-4.86)
[2021-07-26 10:53] LABS: Protime INR 1.13
--- NOTE | 2021-07-26 11:19 | RAD REPORT ---
EXAM DESCRIPTION: CT - Head Brain Wo Cont - 07/26/2021 10:53 am CLINICAL HISTORY: hypertension COMPARISON: Facial Bones W/ Mpr dated 07/17/2017; Head C Spine Mpr Wo Con dated 11/23/2018 TECHNIQUE: Axial 5 mm thick images of the head were obtained without IV contrast. All CT scans are performed using dose optimization technique as appropriate and may include automated exposure control or mA/KV adjustment according to patient size. FINDINGS: No intracranial hemorrhage, mass, edema or shift of mid-line structures. No acute infarcti on changes seen. No cortical edema or sulcal effacement. Moderate atrophy changes are present with ve ntricles in proportion to volume loss. Chronic ischemic changes are present in the cerebral white mat ter. Atrophy changes are stable from 2019. Mastoid air cells and visualized portions of the paranasal sinuses are clear. No acute bony findings. IMPRESSION: Negative non-contrast CT head examination for acute intracranial finding. Above detailed findings are stable from 2019.
[2021-07-26 11:47] LABS: Potassium 4.2 mmol/L (3.5-5.1); Troponin (Emerg Dept Use Only) 0.03 ng/mL (0.0-0.045)
[2021-07-26] MEDS ORDERED: cloNIDine HCL 0.1 MG TAB ONE (11:56)
[2021-07-26] MEDS ORDERED: NA CHLORIDE 0.9% 500 ML ONE (14:12)
[2021-07-26 15:14] LABS: Urine Blood Trace-lysed (Negative); Urine Glucose Negative (Negative); Urine Protein 2+ (Negative); Urine pH 5.5 (5.0-7.0)
[2021-07-26 16:49] LABS: Urine RBC <5 /HPF (NONE SEEN)
[2021-07-26 16:50] LABS: Urine Bacteria <20 /HPF (<20)
--- NOTE | 2021-07-26 17:06 | EDPHYS ---
Physician Documentation [facility] Name: Leslie Cedeño Age: 85 yrs Sex: Female : 1935 Arrival Date: 07/26/2021 Time: 10:01 Bed 19 Private MD: ED Physician Darwin Kevin HPI: 07/26 10:37 This 85 yrs old Female presents to ER via EMS with complaints of High Blood rn Pressure. 10:37 The patient has elevated blood pressure and discovered this prison. Onset: The rn symptoms/episode began/occurred at an unknown time. Modifying factors:. Associated signs and symptoms: The patient has no apparent associated signs or symptoms, Pertinent negatives: chest pain, headache, lightheadedness, nausea, visual changes, vomiting, weakness. Severity of symptoms: At its worst the blood pressure was moderate, in the emergency department the blood pressure is unchanged. The patient has experienced similar episodes in the past. The patient has not recently seen a physician. Her family member, blood pressure elevated, unknown onset. Patient otherwise has no complaints. Denies headache/vision changes/chest pain/shortness of breath/abdominal pain/focal neurological deficit. No change in medication recently or missed doses. Has not felt ill recently. Family member reports chronic kidney disease. Historical: - Allergies: 10:15 PENICILLINS; vg1 10:15 Keflex; vg1 10:15 Levaquin; vg1 10:15 Trulicity; vg1 10:15 Demerol; vg1 - Home Meds: 10:15 clopidogrel Oral [Active]; fenofibrate Oral [Active]; hydrochlorothiazide 12.5 mg Oral vg1 cap 1 cap once daily [Active]; Lasix Oral [Active]; levothyroxine 125 mcg tab 1 tab once daily [Active]; pantoprazole 20 mg Oral TbEC 1 tab once daily [Active]; Allopurinol Oral [Active]; Aspirin Oral [Active]; atorvastatin oral [Active]; hydralazine Oral [Active]; Isosorbide Dinitrate Oral [Active]; Metoprolol Tartrate Oral [Active]; Nitroglycerin Oral [Active]; Novolog Sub-Q [Active]; paroxetine oral [Active]; - PMHx: 10:19 Diabetes - IDDM; heart problems; Hypertension; vg1 - Immunization history:: Adult Immunizations up to date, Client reports receiving the 2nd dose of the Covid vaccine. - Social history:: Smoking status: Patient denies any tobacco usage or history of. - Family history:: not pertinent. - Hospitalizations: : No recent hospitalization is reported. ROS: 10:37 Constitutional: Negative for fever, chills, and weight loss, Eyes: Negative for injury, rn pain, redness, and discharge, ENT: Negative for injury, pain, and discharge, Neck: Negative for injury, pain, and swelling, Cardiovascular: Negative for chest pain, palpitations, and edema, Respiratory: Negative for shortness of breath, cough, wheezing, and pleuritic chest pain, Abdomen/GI: Negative for abdominal pain, nausea, vomiting, diarrhea, and constipation, Back: Negative for injury and pain, : Negative for injury, bleeding, discharge, and swelling, MS/Extremity: Negative for injury and deformity, Skin: Negative for injury, rash, and discoloration, Neuro: Negative for headache, weakness, numbness, tingling, and seizure. Exam: 10:37 Constitutional: This is a well developed, well nourished patient who is awake, alert, rn and in no acute distress. Head/Face: Normocephalic, atraumatic. Eyes: Periorbital areas with no swelling, redness, or edema. Cardiovascular: Regular rate and rhythm. No pulse deficits. Respiratory: Speaking full sentences, unlabored. No increased work of breathing, no retractions or nasal flaring. Abdomen/GI: Soft, non-tender Skin: Warm, dry MS/ Extremity: Pulses equal, no cyanosis. Neurovascular intact. Full, normal range of motion. Equal circumference. Neuro: Awake and alert, GCS 15, oriented to person, place, time, and situation. Cranial nerves II-XII grossly intact. Motor strength 5/5 in all extremities. Sensory grossly intact. Cerebellar exam normal. Vital Signs: 10:13 BP 204 / 70; Pulse 68; Resp 22; Temp 97.9; Pulse Ox 97% ; Weight 65.77 kg; Height 5 ft. vg1 2 in. (157.48 cm); Pain 0/10; 12:17 BP 213 / 56; Pulse 68; Resp 16; Pulse Ox 98% ; tc5 13:14 BP 160 / 54; Pulse 49; Resp 16; Pulse Ox 97% ; tc5 17:25 BP 190 / 71; Pulse 59; Resp 18; Pulse Ox 97% ; tc5 10:13 Body Mass Index 26.52 (65.77 kg, 157.48 cm) vg1 MDM: 10:08 Patient medically screened. rn 17:00 Differential diagnosis: Hypertension, asymptomatic hypertension, UTI, dehydration. Data rn reviewed: vital signs, nurses notes, lab test result(s), radiologic studies, CT scan, and as a result, I will discharge patient. Counseling: I had a detailed discussion with the patient and/or guardian regarding: the historical points, exam findings, and any diagnostic results supporting the discharge/admit diagnosis, lab results, radiology results, the need for outpatient follow up, to return to the emergency department if symptoms worsen or persist or if there are any questions or concerns that arise at home. Response to treatment: the patient's symptoms have markedly improved after treatment, and as a result, I will discharge patient. Special discussion: I discussed with the patient/guardian in detail that at this point there is no indication for admission to the hospital. It is understood, however, that if the symptoms persist or worsen the patient needs to return immediately for re-evaluation. ED course: Patient markedly improved. Have been having issues with lab and urine specimen requiring multiple samples and extending patient's length of stay. Patient has a recent UA that showed outpatient with signs of UTI and did not get treated, now with 1+ leukocytes here as well. Will DC home with antibiotics. Hemoglobin today 9.5. May blood work that daughter has shows hemoglobin 9.6. No reports of any bleeding and states has chronic anemia. Blood pressure improved currently 160/54 and still asymptomatic. Work-up in terms of blood pressure and endorgan damage negative for any acute findings here.. 07/26 10:15 Order name: CBC with Diff rn 07/26 10:15 Order name: Basic Metabolic Panel; Complete Time: 12:17 rn 07/26 10:15 Order name: Protime (+inr); Complete Time: 11: rn 07/26 10:15 Order name: Ptt, Activated; Complete Time: 11: rn 07/26 10:15 Order name: Urine Microscopic Only rn 07/26 10:15 Order name: Troponin (emerg Dept Use Only); Complete Time: 12:17 rn 07/26 10:15 Order name: CT Head Brain wo Cont; Complete Time: 11:22 rn 07/26 10:15 Order name: BNP; Complete Time: 12:17 rn 07/26 10:16 Order name: CBC with Automated Diff; Complete Time: 11:22 EDMS 07/26 12:11 Order name: Urine Culture pm1 07/26 15:14 Order name: Urine Dipstick-Ancillary; Complete Time: 15:54 EDMS 07/26 10:15 Order name: IV Start; Complete Time: 17:27 rn 07/26 10:15 Order name: EKG - Nurse/Tech; Complete Time: 17:26 rn 07/26 10:15 Order name: Urine Dipstick-Ancillary (obtain specimen); Complete Time: 17:26 rn 07/26 13:55 Order name: Diet Ada 1800 Romario; Complete Time: 13:55 ss Administered Medications: 11:31 Drug: cloNIDine 0.1 mg Route: PO; tc5 14:42 Follow up: Response: No adverse reaction; Blood pressure is lowered tc5 13:48 Drug: NS 0.9% 500 ml Route: IV; Rate: bolus; Site: right forearm; tc5 17:26 Follow up: IV Status: Completed infusion; IV Intake: 500ml tc5 Disposition Summary: 07/26/21 17:06 Discharge Ordered Location: Home rn Problem: an ongoing problem rn Symptoms: have improved rn Condition: Stable rn Diagnosis - Essential (primary) hypertension rn - UTI/ Urinary tract infection, site not specified rn - Dehydration rn Followup: rn - With: Private Physician - When: As needed - Reason: Recheck today's complaints, Re-evaluation by your physician Discharge Instructions: - Discharge Summary Sheet rn - Dehydration, Adult rn - Urinary Tract Infection, Adult rn - Hypertension, Adult, [id number] rn Forms: - Medication Reconciliation Form rn - Thank You Letter rn - Antibiotic production internship - Prescription Opioid Use rn Prescriptions: - Macrobid 100 mg Oral Capsule - take 1 capsule by ORAL route every 12 hours for 7 days; 14 capsule; Refills: 0, rn Product Selection Permitted Signatures: Dispatcher [employer] Darwin Mcguire MD MD rn Garcia, Victoria, RN RN vg1 Awilda Pressley, RN RN tc5
--- NOTE | 2021-07-26 17:06 | ER ---
Nurse's Notes [facility] Name: Leslie Cedeño Age: 85 yrs Sex: Female : 1935 Arrival Date: 07/26/2021 Time: 10:01 Bed 19 Private MD: Diagnosis: Essential (primary) hypertension;UTI/ Urinary tract infection, site not specified;Dehydration Presentation: 07/26 10:13 Chief complaint: Patient's son or daughter states: Pt BP at home was 200s systolic. vg1 Upon EMS arrival pt BP was 190/114. Pt denies Chest pain, NV, headache, back pain, but states shortness of breath and weakness. Coronavirus screen: Vaccine status: Patient reports receiving the 2nd dose of the covid vaccine. Ebola Screen: Patient negative for fever greater than or equal to 101.5 degrees Fahrenheit, and additional compatible Ebola Virus Disease symptoms. Initial Sepsis Screen: Does the patient meet any 2 criteria? No. Patient's initial sepsis screen is negative. Does the patient have a suspected source of infection? No. Patient's initial sepsis screen is negative. Risk Assessment: Do you want to hurt yourself or someone else? Patient reports no desire to harm self or others. Onset of symptoms was July 26, 2021. 10:13 Method Of Arrival: EMS: [facility] vg1 10:13 Acuity: ETIENNE 3 vg1 Triage Assessment: 10:19 General: Appears in no apparent distress. uncomfortable, Behavior is calm, cooperative. vg1 Pain: Denies pain. Historical: - Allergies: 10:15 PENICILLINS; vg1 10:15 Keflex; vg1 10:15 Levaquin; vg1 10:15 Trulicity; vg1 10:15 Demerol; vg1 - Home Meds: 10:15 clopidogrel Oral [Active]; fenofibrate Oral [Active]; hydrochlorothiazide 12.5 mg Oral vg1 cap 1 cap once daily [Active]; Lasix Oral [Active]; levothyroxine 125 mcg tab 1 tab once daily [Active]; pantoprazole 20 mg Oral TbEC 1 tab once daily [Active]; Allopurinol Oral [Active]; Aspirin Oral [Active]; atorvastatin oral [Active]; hydralazine Oral [Active]; Isosorbide Dinitrate Oral [Active]; Metoprolol Tartrate Oral [Active]; Nitroglycerin Oral [Active]; Novolog Sub-Q [Active]; paroxetine oral [Active]; - PMHx: 10:19 Diabetes - IDDM; heart problems; Hypertension; vg1 - Immunization history:: Adult Immunizations up to date, Client reports receiving the 2nd dose of the Covid vaccine. - Social history:: Smoking status: Patient denies any tobacco usage or history of. - Family history:: not pertinent. - Hospitalizations: : No recent hospitalization is reported. Screenin:20 Abuse screen: Denies threats or abuse. Nutritional screening: No deficits noted. vg1 Tuberculosis screening: No symptoms or risk factors identified. Assessment: 17:34 General: Appears in no apparent distress. Behavior is calm, cooperative, appropriate tc5 for age, pt family reports pt has high B/P today, pt is asymptomatic.. Vital Signs: 10:13 BP 204 / 70; Pulse 68; Resp 22; Temp 97.9; Pulse Ox 97% ; Weight 65.77 kg; Height 5 ft. vg1 2 in. (157.48 cm); Pain 0/10; 12:17 BP 213 / 56; Pulse 68; Resp 16; Pulse Ox 98% ; tc5 13:14 BP 160 / 54; Pulse 49; Resp 16; Pulse Ox 97% ; tc5 17:25 BP 190 / 71; Pulse 59; Resp 18; Pulse Ox 97% ; tc5 10:13 Body Mass Index 26.52 (65.77 kg, 157.48 cm) vg1 ED Course: 10:01 Patient arrived in ED. rg4 10:08 Darwin Kevin MD is Attending Physician. rn 10:11 Awilda Pressley RN is Primary Nurse. tc5 10:15 Triage completed. vg1 10:19 Arm band placed on. vg1 10:20 Patient has correct armband on for positive identification. Bed in low position. Call vg1 light in reach. Side rails up X2. Adult w/ patient. 10:20 Maintain EMS IV. Dressing intact. Gauge \T\ site: 20 Right Wrist. vg1 10:53 CT Head Brain wo Cont In Process Unspecified. EDMS 17:27 CBC with Diff Sent. tc5 17:35 IV discontinued, intact, bleeding controlled, No redness/swelling at site. Pressure tc5 dressing applied. Administered Medications: 11:31 Drug: cloNIDine 0.1 mg Route: PO; tc5 14:42 Follow up: Response: No adverse reaction; Blood pressure is lowered tc5 13:48 Drug: NS 0.9% 500 ml Route: IV; Rate: bolus; Site: right forearm; tc5 17:26 Follow up: IV Status: Completed infusion; IV Intake: 500ml tc5 Intake: 17:26 IV: 500ml; Total: 500ml. tc5 Outcome: 17:06 Discharge ordered by . rn 17:36 Discharged to home tc5 17:36 Condition: good 17:36 Discharge instructions given to patient, family. 17:36 Patient left the ED. tc5 Addendum: 07/29/2021 08:45 Addendum: Culture Results: Positive urine culture. No further action required. Bacteria s s sensitive to prescribed antibiotic. Signatures: Dispatcher [employer] EDMS Darwin Kevin MD MD rn Smirch, Shelby, RN RN ss Garcia, Rubi rg4 Camila Caldera RN RN vg1 Awilda Pressley RN RN tc5
[2021-07-26 18:10] VITALS: O2SAT 97
[2021-07-26 18:12] VITALS: BP 190/71
[2021-07-26 18:21] VITALS: TEMP 97.7
== END 2021-07-26 17:36 | disposition home or self-care (01) ==
LOC: ER 10:00
DX: I10 Essential (primary) hypertension (principal); N39.0 Urinary tract infection, site not specified; E86.0 Dehydration; E11.9 Type 2 diabetes mellitus without complications; Z88.0 Allergy status to penicillin; Z88.1 Allergy status to other antibiotic agents; Z88.8 Allergy status to other drugs, medicaments and biological substances; Z88.6 Allergy status to analgesic agent
CPT/HCPCS: 96361; 87088; 85025; 87086; 80048; 36415; 85610; 85730; 87077; 87186; 84484; 83880; 70450; 96360; 99284; J7040; 81003; 81015